=== PATIENT | female | born 1990 | race Caucasian/White ===

== ENCOUNTER 2016-10-22 14:09 | Emergency (ER) | payer OTHER ==
[2016-10-22 14:15] VITALS: BP 148/87; PULSE 98; RESP 18; TEMP 98.7
--- NOTE | 2016-10-22 14:54 | ED ---
Female Urogenital HPI - General Chief complaint: Vaginal Bleeding Stated complaint: 4 weeks /poss misscarriage Time Seen by Provider: 10/22/16 14:29 Source: patient, RN notes reviewed Mode of arrival: ambulatory Limitations: no limitations - History of Present Illness Initial comments: Patient is was a female presents to the emergency room for evaluation of vaginal bleeding. Patient states last menstrual cycle was in September. Patient states she thinks she is about 4 weeks . Patient states she began spotting today. Patient states she thinks she is having a miscarriage. Patient states she had two previous full term vaginal births. Patient states having slight lower abdominal cramping. Patient states the spotting began shortly before arrival. Patient denies nausea or vomiting. Patient denies headache or dizziness. Patient denies chest pain or shortness of breath. Patient states she's not followed up with [facility] yet. Patient does admit to smoking daily. Last Menstrual Period: 09/15/16 - Related Data Home Medications Medication Instructions Recorded Confirmed No Known Home Medications [No 10/22/16 10/22/16 Known Home Medications] Allergies Allergy/AdvReac Type Severity Reaction Status Date / Time No Known Allergies Allergy Verified 10/22/16 14:30 Review of Systems ROS Statement: Those systems with pertinent positive or pertinent negative responses have been documented in the HPI. ROS Other: All systems not noted in ROS Statement are negative. Past Medical History Past Medical History: No Reported History History of Any Multi-Drug Resistant Organisms: None Reported Past Surgical History: Section Past Psychological History: No Psychological Hx Reported Smoking Status: Current every day smoker Past Alcohol Use History: Occasional Past Drug Use History: None Reported General Exam - General Exam Comments Initial Comments: Sitting in exam room, no distress. Limitations: no limitations General appearance: alert, in no apparent distress Head exam: Present: atraumatic, normocephalic, normal inspection Eye exam: Present: normal appearance ENT exam: Present: normal exam Neck exam: Present: normal inspection Respiratory exam: Present: normal lung sounds bilaterally. Absent: respiratory distress Cardiovascular Exam: Present: regular rate, normal rhythm, normal heart sounds GI/Abdominal exam: Present: soft, normal bowel sounds. Absent: distended, tenderness, guarding, rebound, rigid External exam: Present: normal external exam Speculum exam: Present: vaginal bleeding Expanded Speculum exam: Present: cervical OS closed Extremities exam: Present: normal inspection Back exam: Present: normal inspection Neurological exam: Present: alert, oriented X3, CN II-XII intact, normal gait Psychiatric exam: Present: normal affect, normal mood Skin exam: Present: warm, dry, intact, normal color. Absent: rash Course Vital Signs 10/22/16 14:11 Temperature 98.7 F Pulse Rate 98 Respiratory 18 Rate Blood Pressure 148/87 O2 Sat by Pulse 98 Oximetry Medical Decision Making - Medical Decision Making Patient is a 26-year-old female presents to the emergency room for evaluation of vaginal bleeding. Patient states she is about 4 weeks . Ultrasound showed no evidence of IUP. Beta-hCG 15. blood type A positive. Advised patient to return for repeat beta hCG in 48 hours. Patient advised follow-up with OB/ [employer] COUNTER PERSON. Patient states she understands everything that was discussed with her. Return parameters discussed. Case discussed Dr. Espino. - Lab Data Lab Results 10/22/16 10/22/16 10/22/16 Range/Units 14:38 14:38 14:38 HCG, Quant 15.1 mIU/mL Urine Color Light Red Urine Appearance Cloudy H (Clear) Urine pH 5.5 (5.0-8.0) Ur Specific [place] 1.021 (1.001-1.035) Urine Protein 1+ H (Negative) Urine Glucose (UA) Negative (Negative) Urine Ketones Negative (Negative) Urine Blood Large H (Negative) Urine Nitrite Negative (Negative) Urine Bilirubin Negative (Negative) Urine Urobilinogen <2.0 (<2.0) mg/dL Ur Leukocyte Esterase Negative (Negative) Urine RBC >182 H (0-5) /hpf Urine WBC 9 H (0-5) /hpf Ur Squamous Epith Cells 4 (0-4) /hpf Urine Bacteria Occasional H (None) /hpf Urine Mucus Rare H (None) /hpf Urine Yeast (Budding) Many H (None) /hpf Blood Type A Positive Blood Type Recheck No - Radiology Data Radiology results: report reviewed, image reviewed Disposition Clinical Impression: Threatened Disposition: HOME SELF-CARE Condition: Good Instructions: Threatened Miscarriage (ED) Additional Instructions: Please return for repeat beta-hCG in 48 hours. Refrain from heavy lifting or sexual activity for the next 7-10 days. Please follow up with [facility] in 24-48 hours. If any new symptom arises or symptoms worsen, return to ER as soon as possible. Referrals: Marcelo Mcfarland DO [Doctor of Osteopathic Medicine] - 1-2 days Time of Disposition: 16:21
[2016-10-22 15:22] LABS: Appearance,Urine Cloudy (Clear); Bacteria,Urine Occasional /hpf; Bilirubin,Urine Negative (Negative); Glucose,Urine (UA) Negative (Negative); Ketones,Urine Negative (Negative); Leukocyte Esterase,Urine Negative (Negative); Mucus,Urine Rare /hpf; Nitrite,Urine Negative (Negative); PH, Urine 5.5 (5.0-8.0); Particle Count 7876; Protein,Urine 1+ (Negative); RBC,Urine >182 /hpf (0-5); Specific Gravity,Urine 1.021 (1.001-1.035); Squamous Epithelial Cell,Urine 4 /hpf (0-4); UA Billing (MACRO vs. MICRO) MICRO; Urobilinogen,Urine <2.0 mg/dL (<2.0); WBC,Urine 9 /hpf (0-5)
--- NOTE | 2016-10-22 16:00 | US ---
EXAMINATION TYPE: US OB <=14 wks transvag DATE OF EXAM: 10/22/2016 COMPARISON: NONE CLINICAL HISTORY: Pain. Pt states vaginal bleeding that started today EXAM PERFORMED: Transvaginal (TV) and Transabdominal (TA) endovaginal scanning performed for better evaluation of the uterus and ovaries EXAM MEASUREMENTS: GESTATIONAL AGE / DATING Physician Established: Not established Dates by LMP: (5 weeks/2 days) EDC: 06/22/2017 Dates by First Scan: No prior Dates by Current Scan for: No IUP seen MATERNAL ANATOMY Uterus: 9.2 x 4.6 x 5.9 cm Right Ovary: 2.6 x 2.1 x 1.9 cm Left Ovary: 2.9 x 1.8 x 2.2 cm Post CDS / Adnexa: wnl Presence of free fluid: No Presence of corpus luteal cyst: Right Ovary= 1.5 x 1.3 x 1.3 cm GESTATION / SURVEY IUP: No IUP seen at this time Date of LMP: 09/15/2016 Beta HcG (if available): 15 No IUP seen at this time IMPRESSION: Intrauterine is not evident, correlate clinically and follow-up as indicated.
== END 2016-10-22 16:49 | disposition home or self-care (01) ==
LOC: EC 14:09
DX: O20.0 Threatened abortion (principal); O99.331 Smoking (tobacco) complicating pregnancy, first trimester; F17.200 Nicotine dependence, unspecified, uncomplicated; Z3A.01 Less than 8 weeks gestation of pregnancy
CPT/HCPCS: 36415; 76801; 76817; 81001; 84702; 86900; 86901; 99284

== ENCOUNTER 2018-06-23 16:29 | Emergency (ER) | payer OTHER ==
[2018-06-23 16:53] VITALS: RESP 18
[2018-06-23] MEDS: SODIUM CHLORIDE 0.9% 500 ML 500 ML IV SCH (17:45)
[2018-06-23 18:02] LABS: Basophils # (A) 0.1 k/uL (0-0.2); Basophils % (A) 1 %; Eosinophils # (A) 0.3 k/uL (0-0.7); Eosinophils % (A) 4 %; HCT 45.6 % (34.0-46.0); HGB 15.2 gm/dL (11.4-16.0); Lymphocytes # (A) 1.9 k/uL (1.0-4.8); Lymphocytes % (A) 28 %; MCH 30.1 pg (25.0-35.0); MCHC 33.3 g/dL (31.0-37.0); MCV 90.7 fL (80.0-100.0); Mean Platelet Volume 6.9; Monocytes # (A) 0.4 k/uL (0-1.0); Monocytes % (A) 6 %; Neutrophils # (A) 4.3 k/uL (1.3-7.7); Neutrophils % (A) 61 %; Platelet Count 290 k/uL (150-450); RBC 5.03 m/uL (3.80-5.40); RDW 12.9 % (11.5-15.5)
[2018-06-23 18:12] LABS: ALT 32 U/L (9-52); AST 20 U/L (14-36); Alkaline Phosphatase 66 U/L (38-126); Anion Gap 8 mmol/L; Blood Urea Nitrogen 11 mg/dL (7-17); Calcium 9.3 mg/dL (8.4-10.2); Carbon Dioxide 23 mmol/L (22-30); Chloride 110 mmol/L (98-107); Glucose 93 mg/dL (74-99); Potassium 4.4 mmol/L (3.5-5.1); Sodium 141 mmol/L (137-145); Total Bilirubin 0.4 mg/dL (0.2-1.3); Total Protein 6.9 g/dL (6.3-8.2)
--- NOTE | 2018-06-23 18:22 | CT ---
CT scan of the orbits. History right eye swelling and redness. Comparison none. TECHNIQUE: Multiple axial sections were obtained from the top to the bottom of the orbits with intravenous contr ast. Contrast was Isovue 100 mL. FINDINGS: The globes are symmetric. There is no evidence of retro-orbital mass. Extraocular muscles are symmetr ic. There is mild preseptal soft tissue swelling on the right side periorbital soft tissues. The bony orbits are intact. There is normal aeration of the frontal and ethmoid and maxillary sinuses except for small mucus retention cyst in the left maxillary sinus. Sphenoid sinus appears normal. I see no b sherry destructive process. IMPRESSION: Mild preseptal soft tissue swelling on the right side. No fracture seen.
[2018-06-23] MEDS ORDERED: AMPICILLIN-SULBACTAM 3 GM in SODIUM CHLORIDE 0.9% 100 ML IVPB STA (18:53)
--- NOTE | 2018-06-23 18:59 | ED ---
General Adult HPI - General Chief complaint: ENT Stated complaint: rt eye pain Time Seen by Provider: 06/23/18 17:02 Source: patient, RN notes reviewed Mode of arrival: ambulatory Limitations: no limitations - History of Present Illness Initial comments: 28-year-old female presents to the emergency department for a chief complaint of right eye swelling. Patient states that 4 days ago her right eye started to feel scratchy and irritated. She states that 3 days ago she started to have redness along the right eye. She states that she was using a pink eye drop she got [id number]. She saw her primary care provider 3 days ago who prescribed her prednisone drops that she has been doing since then. Patient to continue to get erythematous so she made an appointment with an folding machine operator. She saw the folding machine operator today and was sent over to the emergency department for rule out orbital cellulitis. Patient denies fevers or chills. She denies blurry vision. She does admit to minimal pain with lateral and medial movements of the right eye. Patient has no other complaints at this time including shortness of breath, chest pain, abdominal pain, nausea or vomiting, headache, or visual changes. - Related Data Home Medications Medication Instructions Recorded Confirmed prednisoLONE ACETATE [Pred Forte See Taper RIGHT EYE DIRECTED 06/23/18 1%] Previous Rx's Medication Instructions Recorded Cephalexin [Keflex] 500 mg PO Q6HR 10 Days cap 06/23/18 Clindamycin HCl [Cleocin] 450 mg PO TID 10 Days cap 06/23/18 Erythromycin Ophth Oint [Romycin 1 applic RIGHT EYE QID 7 Days gm 06/23/18 Ophth Oint] Allergies Allergy/AdvReac Type Severity Reaction Status Date / Time No Known Allergies Allergy Verified 06/23/18 18:00 Review of Systems ROS Statement: Those systems with pertinent positive or pertinent negative responses have been documented in the HPI. ROS Other: All systems not noted in ROS Statement are negative. Past Medical History Past Medical History: No Reported History History of Any Multi-Drug Resistant Organisms: None Reported Past Surgical History: Section Past Psychological History: No Psychological Hx Reported Smoking Status: Current every day smoker Past Alcohol Use History: Occasional Past Drug Use History: None Reported General Exam Limitations: no limitations General appearance: alert, in no apparent distress Head exam: Present: atraumatic, normocephalic, normal inspection Eye exam: Present: normal appearance, PERRL, EOMI (minimal pain with lateral and medial movements of right eye), conjunctival injection (erythema noted to the right conjunctiva), periorbital swelling (erythema noted to the periorbital area of the right eye), periorbital tenderness. Absent: scleral icterus Expanded Visual acuity (R) = 20/: 50 Visual acuity (L) = 20/: 25 ENT exam: Present: normal exam, mucous membranes moist Neck exam: Present: normal inspection, full ROM. Absent: tenderness, meningismus, lymphadenopathy Respiratory exam: Present: normal lung sounds bilaterally. Absent: respiratory distress, wheezes, rales, rhonchi, stridor Cardiovascular Exam: Present: regular rate, normal rhythm, normal heart sounds. Absent: systolic murmur, diastolic murmur, rubs, gallop, clicks Course Vital Signs 06/23/18 06/23/18 16:48 20:52 Temperature 99 F 98.1 F Pulse Rate 99 78 Respiratory 18 18 Rate Blood Pressure 131/94 155/78 O2 Sat by Pulse 98 97 Oximetry Medical Decision Making - Medical Decision Making 28-year-old female presents to the emergency department for a chief complaint of right eye swelling [address] Quiroz today who sent her to the ER for rule out orbital cellulitis. On exam patient does have minimal pain with medial and lateral motions. Denies any visual changes. There is some erythema noted of the conjunctiva. Edema noted with mild erythema of the periorbital structures of the right eye. CBC CMP unremarkable. CT shows mild preseptal soft tissue swelling on the right side. Urine obtained and did show hCG, patient was unaware of this however given patient symptoms computed tomography scan and antibiotics are necessary. Patient agrees with this. Patient given Unasyn. Spoke with Dr. Fuentes who recommends outpatient antibiotics at this time with follow-up to Dr. Rogers tomorrow. Patient will be given clindamycin which is a category B and recommended in periOrbital cellulitis. Patient will return here she has any worsening symptoms. - Lab Data Result diagrams: 06/23/18 17:45 06/23/18 17:45 Lab Results 06/23/18 06/23/18 06/23/18 Range/Units 17:45 17:45 17:45 WBC 7.0 (3.8-10.6) k/uL RBC 5.03 (3.80-5.40) m/uL Hgb 15.2 (11.4-16.0) gm/dL Hct 45.6 (34.0-46.0) % MCV 90.7 (80.0-100.0) fL MCH 30.1 (25.0-35.0) pg MCHC 33.3 (31.0-37.0) g/dL RDW 12.9 (11.5-15.5) % Plt Count 290 (150-450) k/uL Neutrophils % 61 % Lymphocytes % 28 % Monocytes % 6 % Eosinophils % 4 % Basophils % 1 % Neutrophils # 4.3 (1.3-7.7) k/uL Lymphocytes # 1.9 (1.0-4.8) k/uL Monocytes # 0.4 (0-1.0) k/uL Eosinophils # 0.3 (0-0.7) k/uL Basophils # 0.1 (0-0.2) k/uL Sodium 141 (137-145) mmol/L Potassium 4.4 (3.5-5.1) mmol/L Chloride 110 H (98-107) mmol/L Carbon Dioxide 23 (22-30) mmol/L Anion Gap 8 mmol/L BUN 11 (7-17) mg/dL Creatinine 0.67 (0.52-1.04) mg/dL Est GFR (CKD-EPI)AfAm >90 (>60 ml/min/1.73 sqM) Est GFR (CKD-EPI)NonAf >90 (>60 ml/min/1.73 sqM) Glucose 93 (74-99) mg/dL Plasma Lactic Acid Fabiano 1.3 (0.7-2.0) mmol/L Calcium 9.3 (8.4-10.2) mg/dL Total Bilirubin 0.4 (0.2-1.3) mg/dL AST 20 (14-36) U/L ALT 32 (9-52) U/L Alkaline Phosphatase 66 (38-126) U/L Total Protein 6.9 (6.3-8.2) g/dL Albumin 4.0 (3.5-5.0) g/dL Urine Color Urine Appearance (Clear) Urine pH (5.0-8.0) Ur Specific [place] (1.001-1.035) Urine Protein (Negative) Urine Glucose (UA) (Negative) Urine Ketones (Negative) Urine Blood (Negative) Urine Nitrite (Negative) Urine Bilirubin (Negative) Urine Urobilinogen (<2.0) mg/dL Ur Leukocyte Esterase (Negative) Urine HCG, Qual (Not Detectd) 06/23/18 06/23/18 Range/Units 18:56 18:56 WBC (3.8-10.6) k/uL RBC (3.80-5.40) m/uL Hgb (11.4-16.0) gm/dL Hct (34.0-46.0) % MCV (80.0-100.0) fL MCH (25.0-35.0) pg MCHC (31.0-37.0) g/dL RDW (11.5-15.5) % Plt Count (150-450) k/uL Neutrophils % % Lymphocytes % % Monocytes % % Eosinophils % % Basophils % % Neutrophils # (1.3-7.7) k/uL Lymphocytes # (1.0-4.8) k/uL Monocytes # (0-1.0) k/uL Eosinophils # (0-0.7) k/uL Basophils # (0-0.2) k/uL Sodium (137-145) mmol/L Potassium (3.5-5.1) mmol/L Chloride (98-107) mmol/L Carbon Dioxide (22-30) mmol/L Anion Gap mmol/L BUN (7-17) mg/dL Creatinine (0.52-1.04) mg/dL Est GFR (CKD-EPI)AfAm (>60 ml/min/1.73 sqM) Est GFR (CKD-EPI)NonAf (>60 ml/min/1.73 sqM) Glucose (74-99) mg/dL Plasma Lactic Acid Fabiano (0.7-2.0) mmol/L Calcium (8.4-10.2) mg/dL Total Bilirubin (0.2-1.3) mg/dL AST (14-36) U/L ALT (9-52) U/L Alkaline Phosphatase (38-126) U/L Total Protein (6.3-8.2) g/dL Albumin (3.5-5.0) g/dL Urine Color Yellow Urine Appearance Clear (Clear) Urine pH 5.5 (5.0-8.0) Ur Specific [place] 1.042 H (1.001-1.035) Urine Protein Negative (Negative) Urine Glucose (UA) Negative (Negative) Urine Ketones Negative (Negative) Urine Blood Negative (Negative) Urine Nitrite Negative (Negative) Urine Bilirubin Negative (Negative) Urine Urobilinogen <2.0 (<2.0) mg/dL Ur Leukocyte Esterase Negative (Negative) Urine HCG, Qual Detected (Not Detectd) Disposition Clinical Impression: Preseptal cellulitis, Disposition: HOME SELF-CARE Condition: Good Instructions (If sedation given, give patient instructions): Periorbital Cellulitis in Adults (ED) Additional Instructions: Please use antibiotic as directed. Please follow-up with MECHANICAL PROJECT MANAGER and folding machine operator tomorrow. Please return here if you have any worsening symptoms. Prescriptions: Cephalexin [Keflex] 500 mg PO Q6HR 10 Days cap Clindamycin HCl [Cleocin] 450 mg PO TID 10 Days cap Erythromycin Ophth Oint [Romycin Ophth Oint] 1 applic RIGHT EYE QID 7 Days gm Is patient prescribed a controlled substance at d/c from ED?: No Referrals: Frantz Lim DO [Primary Care Provider] - 1-2 days Eduardo Rogers MD [STAFF PHYSICIAN] - 1-2 days Time of Disposition: 20:38
[2018-06-23 19:12] LABS: Appearance,Urine Clear (Clear); Bilirubin,Urine Negative (Negative); Blood,Urine Negative (Negative); Color,Urine Yellow; Glucose,Urine (UA) Negative (Negative); Ketones,Urine Negative (Negative); Leukocyte Esterase,Urine Negative (Negative); Nitrite,Urine Negative (Negative); PH, Urine 5.5 (5.0-8.0); Protein,Urine Negative (Negative); Specific Gravity,Urine 1.042 (1.001-1.035); Urobilinogen,Urine <2.0 mg/dL (<2.0)
[2018-06-23] MEDS ORDERED: ERYTHROMYCIN 5 MG/GM OPHTH OINT 3.5 GM TUBE RIGHT EYE STA (20:39)
[2018-06-23 21:08] VITALS: BP 155/78; PULSE 78; TEMP 98.1
== END 2018-06-23 19:55 | disposition home or self-care (01) ==
LOC: EC 16:29
DX: O99.711 Diseases of the skin and subcutaneous tissue complicating pregnancy, first trimester (principal); L03.213 Periorbital cellulitis; O99.331 Smoking (tobacco) complicating pregnancy, first trimester; F17.200 Nicotine dependence, unspecified, uncomplicated; Z3A.01 Less than 8 weeks gestation of pregnancy; Z79.899 Other long term (current) drug therapy
CPT/HCPCS: 36415; 80053; 83605; 85025; 81003; 81025; 87040; 70481; 99284; 96365; J0295; Q9967

== ENCOUNTER 2018-06-25 15:09 | Emergency (ER) | payer OTHER ==
--- NOTE | 2018-06-25 15:52 | ED ---
General Adult HPI - General Chief complaint: Eye Problems Stated complaint: Eye problems Source: patient, RN notes reviewed Mode of arrival: ambulatory Limitations: no limitations - History of Present Illness Initial comments: Patient is a 28-year-old female who presents the emergency department with a five-day history of eye infection. She was here on 06/23/2018 for right eye infection was found to have preseptal cellulitis following computed tomography scan and was prescribed Keflex and Clindamycin. Patient states she has been taking these as prescribed. She reports she has not followed up with anyone after her visit 2 days ago. She states that the infection from her right eye is spreading to her left eye. Admits to watery eye drainage. Patient denies any recent fever, chills, shortness of breath, chest pain, back pain, abdominal pain , nausea or vomiting, numbness or tingling, headaches or visual changes, or any other complaints. - Related Data Home Medications Medication Instructions Recorded Confirmed prednisoLONE ACETATE [Pred Forte See Taper RIGHT EYE DIRECTED 06/23/18 1%] Previous Rx's Medication Instructions Recorded Cephalexin [Keflex] 500 mg PO Q6HR 10 Days cap 06/23/18 Clindamycin HCl [Cleocin] 450 mg PO TID 10 Days cap 06/23/18 Erythromycin Ophth Oint [Romycin 1 applic RIGHT EYE QID 7 Days gm 06/23/18 Ophth Oint] Allergies Allergy/AdvReac Type Severity Reaction Status Date / Time No Known Allergies Allergy Verified 06/25/18 15:13 Review of Systems ROS Statement: Those systems with pertinent positive or pertinent negative responses have been documented in the HPI. ROS Other: All systems not noted in ROS Statement are negative. Past Medical History Past Medical History: No Reported History History of Any Multi-Drug Resistant Organisms: None Reported Past Surgical History: Section Past Psychological History: No Psychological Hx Reported Smoking Status: Current every day smoker Past Alcohol Use History: Occasional Past Drug Use History: None Reported General Exam Limitations: no limitations General appearance: alert, in no apparent distress Head exam: Present: atraumatic, normocephalic Eye exam: Present: PERRL, EOMI, conjunctival injection (Right worse than left.) , other (Right upper eyelid is edematous.) Respiratory exam: Present: normal lung sounds bilaterally. Absent: wheezes, rales, rhonchi Cardiovascular Exam: Present: regular rate, normal rhythm Neurological exam: Present: alert, oriented X3 Course Vital Signs 06/25/18 06/25/18 06/25/18 15:11 15:41 17:15 Temperature 97.5 F L 97.9 F Pulse Rate 107 H 95 81 Respiratory 20 16 Rate Blood Pressure 159/101 150/95 158/93 O2 Sat by Pulse 99 99 97 Oximetry Medical Decision Making - Medical Decision Making Blood culture from 06/23/2018 shows no growth. Visual acuity on 06/23/2018 was right 20/50 and left 20/25. Visual acuity today is improved: right 20/30 and left 20/25. I reviewed the CT of head and orbits from 06/23/2018. Dr. Rahman spoke with Dr. Rogers (ophthalmology). This is possibly viral conjunctivitis. Will discharge with instruction to follow-up with ophthalmology. Will continue previously prescribed antibiotics. Case discussed in detail with attending physician Dr. Rahman. Disposition Clinical Impression: Preseptal cellulitis Disposition: HOME SELF-CARE Condition: Good Instructions (If sedation given, give patient instructions): Eye Lubricant ( Into the eye) Additional Instructions: Follow-up with your PCP and healthcare translator in 1 to 2 days. Continue taking antibiotics as prescribed previously. Return to the emergency department if your symptoms worsen or other concerns. Is patient prescribed a controlled substance at d/c from ED?: No Referrals: Frantz Lim DO [Primary Care Provider] - 1-2 days Time of Disposition: 17:14
[2018-06-25 17:21] VITALS: BP 158/93; PULSE 81; RESP 16; TEMP 97.9
== END 2018-06-25 17:15 | disposition home or self-care (01) ==
LOC: EC 15:09
DX: L03.213 Periorbital cellulitis (principal); F17.200 Nicotine dependence, unspecified, uncomplicated
CPT/HCPCS: 99282

== ENCOUNTER 2018-08-07 23:00 | Emergency (ER) | payer OTHER ==
[2018-08-07 23:14] VITALS: RESP 18
[2018-08-08 00:40] LABS: Basophils % (A) 1 %; Eosinophils # (A) 0.1 k/uL (0-0.7); Eosinophils % (A) 2 %; HGB 15.2 gm/dL (11.4-16.0); Lymphocytes # (A) 1.9 k/uL (1.0-4.8); Lymphocytes % (A) 21 %; MCH 29.5 pg (25.0-35.0); MCHC 34.6 g/dL (31.0-37.0); Mean Platelet Volume 9.4; Monocytes # (A) 0.4 k/uL (0-1.0); Monocytes % (A) 5 %; Neutrophils # (A) 6.5 k/uL (1.3-7.7); Neutrophils % (A) 71 %; Platelet Count 306 k/uL (150-450); RBC 5.16 m/uL (3.80-5.40); RDW 15.4 % (11.5-15.5); WBC 9.1 k/uL (3.8-10.6)
[2018-08-08] MEDS ORDERED: SODIUM CHLORIDE 0.9% 1,000 ML IV ONE (00:43)
[2018-08-08 00:50] LABS: ALT 29 U/L (9-52); AST 16 U/L (14-36); Albumin 4.1 g/dL (3.5-5.0); Alkaline Phosphatase 78 U/L (38-126); Anion Gap 11 mmol/L; Blood Urea Nitrogen 16 mg/dL (7-17); Calcium 9.6 mg/dL (8.4-10.2); Carbon Dioxide 23 mmol/L (22-30); Chloride 108 mmol/L (98-107); Glucose 119 mg/dL (74-99); Potassium 3.8 mmol/L (3.5-5.1); Sodium 142 mmol/L (137-145); Total Bilirubin 0.3 mg/dL (0.2-1.3); Total Protein 6.9 g/dL (6.3-8.2)
--- NOTE | 2018-08-08 00:56 | ED ---
Female Urogenital HPI - General Source: patient Mode of arrival: ambulatory Limitations: no limitations <Courtney Mack - Last Filed: 08/08/18 03:00> <Keesha Daniel - Last Filed: 08/08/18 07:24> - General Chief complaint: Vaginal Bleeding Stated complaint: Dx Miscarriage 07/18 still bleeding Time Seen by Provider: 08/08/18 00:29 - History of Present Illness Initial comments: 28-year-old female patient percents to the emergency department today for evaluation of heavy vaginal bleeding. The patient states that she started to have a miscarriage on 07/18/2018. Patient states she continues to bleed. Shawn membreno states that she did have increase in bleeding today and has been changing her pad every 1-1/2-2 hours. Patient states that the pads are fairly saturated. She denies any passage of tissue or clots. States earlier in the day she did have some lightheaded and dizziness. She denies any chest pain or shortness of breath. Having some suprapubic abdominal cramping. Denies any back pain. Letty ent is G4, P2, with one miscarriage in the past. Patient states she is approximate 6 weeks at time of spontaneous . Patient denies any recent rash, fever, chills, shortness breath, chest pain, nausea, vomiting, diarrhea, constipation, back pain, numbness, tingling, dysuria, urinary urgency, urinary frequency, headache, visual changes, or any other complaints. (Courtney Mack) - Related Data Home Medications Medication Instructions Recorded Confirmed prednisoLONE ACETATE [Pred Forte See Taper RIGHT EYE DIRECTED 06/23/18 06/23/18 1%] Previous Rx's Medication Instructions Recorded Cephalexin [Keflex] 500 mg PO Q6HR 10 Days cap 06/23/18 Clindamycin HCl [Cleocin] 450 mg PO TID 10 Days cap 06/23/18 Erythromycin Ophth Oint [Romycin 1 applic RIGHT EYE QID 7 Days gm 06/23/18 Ophth Oint] Allergies Allergy/AdvReac Type Severity Reaction Status Date / Time No Known Allergies Allergy Verified 06/25/18 15:13 Review of Systems ROS Other: All systems not noted in ROS Statement are negative. <Courtney Mack - Last Filed: 08/08/18 03:00> ROS Other: All systems not noted in ROS Statement are negative. <Keesha Daniel P - Last Filed: 08/08/18 07:24> ROS Statement: Those systems with pertinent positive or pertinent negative responses have been documented in the HPI. Past Medical History Past Medical History: No Reported History History of Any Multi-Drug Resistant Organisms: None Reported Past Surgical History: Section Past Psychological History: No Psychological Hx Reported Smoking Status: Current every day smoker Past Alcohol Use History: Occasional Past Drug Use History: None Reported <Courtney Mack M - Last Filed: 08/08/18 03:00> General Exam Limitations: no limitations General appearance: alert, in no apparent distress, other (Physical well- developed, well-nourished adult female patient in no acute distress. Vital signs upon presentation are temperature 98.1F, pulse 110, respirations 18, blood pressure 152/94, pulse ox 100% on room air.) Eye exam: Present: normal appearance, PERRL, EOMI. Absent: scleral icterus, conjunctival injection, periorbital swelling ENT exam: Present: normal exam, normal oropharynx, mucous membranes moist Respiratory exam: Present: normal lung sounds bilaterally. Absent: respiratory distress, wheezes, rales, rhonchi, stridor Cardiovascular Exam: Present: regular rate, normal rhythm, normal heart sounds. Absent: systolic murmur, diastolic murmur, rubs, gallop, clicks GI/Abdominal exam: Present: soft, normal bowel sounds. Absent: distended, tenderness, guarding, rebound, rigid External exam: Present: normal external exam Speculum exam: Present: vaginal bleeding (Mild dark red vaginal bleeding. No clots noted. Cervical os dilated to fingertip. ). Absent: tissue By manual exam: Present: normal by manual exam Neurological exam: Present: alert, oriented X3, CN II-XII intact Psychiatric exam: Present: normal affect, normal mood Skin exam: Present: warm, dry, intact, normal color. Absent: rash <Courtney Mack M - Last Filed: 08/08/18 03:00> Course Vital Signs 08/07/18 08/08/18 23:08 02:26 Temperature 98.1 F 98.0 F Pulse Rate 110 H 78 Respiratory 18 18 Rate Blood Pressure 152/94 138/73 O2 Sat by Pulse 100 99 Oximetry Medical Decision Making - Lab Data Result diagrams: 08/07/18 23:53 08/07/18 23:53 <Courtney Mack - Last Filed: 08/08/18 03:00> - Lab Data Result diagrams: 08/07/18 23:53 08/07/18 23:53 <Keseha Daniel - Last Filed: 08/08/18 07:24> - Medical Decision Making 28-year-old female patient presents to the emergency department today for evaluation of vaginal bleeding. Patient states that she has been changing her pad every 1-1/2-2 hours today. Patient is reporting suprapubic discomfort. Patient was diagnosed with spontaneous on 07/18/2018. Followed-up with Dr. Sims a couple of weeks ago. Physical examination at this time is unremarkable. Pelvic examination did reveal presence of mild dark red vaginal bleeding. Cervical os is mildly dilated to fingertip. Labs reviewed and revealed normal hemoglobin. HCG is 16 at this time. Patient vital signs are stable. She is afebrile. She'll be discharged home to follow-up with TEST WORKER for recheck as soon as possible. Return parameters were discussed in detail. She verbalizes understanding and agrees with this plan. (Courtney Mack) I was available for consultation in the emergency department. The history and physical exam were done by the midlevel provider. I was consulted for this patient's care. I reviewed the case with the midlevel provider and based on their presentation of the patient, I agree with the assessment, medical decision making and plan of care as documented. (Keesha Daniel) - Lab Data Lab Results 08/07/18 08/07/18 08/08/18 Range/Units 23:53 23:53 00:42 WBC 9.1 (3.8-10.6) k/uL RBC 5.16 (3.80-5.40) m/uL Hgb 15.2 (11.4-16.0) gm/dL Hct 44.0 (34.0-46.0) % MCV 85.2 D (80.0-100.0) fL MCH 29.5 (25.0-35.0) pg MCHC 34.6 (31.0-37.0) g/dL RDW 15.4 (11.5-15.5) % Plt Count 306 (150-450) k/uL Neutrophils % 71 % Lymphocytes % 21 % Monocytes % 5 % Eosinophils % 2 % Basophils % 1 % Neutrophils # 6.5 (1.3-7.7) k/uL Lymphocytes # 1.9 (1.0-4.8) k/uL Monocytes # 0.4 (0-1.0) k/uL Eosinophils # 0.1 (0-0.7) k/uL Basophils # 0.0 (0-0.2) k/uL PT (9.0-12.0) sec INR (<1.2) APTT (22.0-30.0) sec Sodium 142 (137-145) mmol/L Potassium 3.8 (3.5-5.1) mmol/L Chloride 108 H (98-107) mmol/L Carbon Dioxide 23 (22-30) mmol/L Anion Gap 11 mmol/L BUN 16 (7-17) mg/dL Creatinine 0.90 (0.52-1.04) mg/dL Est GFR (CKD-EPI)AfAm >90 (>60 ml/min/1.73 sqM) Est GFR (CKD-EPI)NonAf 88 (>60 ml/min/1.73 sqM) Glucose 119 H (74-99) mg/dL Calcium 9.6 (8.4-10.2) mg/dL Total Bilirubin 0.3 (0.2-1.3) mg/dL AST 16 (14-36) U/L ALT 29 (9-52) U/L Alkaline Phosphatase 78 (38-126) U/L Total Protein 6.9 (6.3-8.2) g/dL Albumin 4.1 (3.5-5.0) g/dL HCG, Quant 16.2 mIU/mL Blood Type A Positive Blood Type Recheck No 08/08/18 Range/Units 00:42 WBC (3.8-10.6) k/uL RBC (3.80-5.40) m/uL Hgb (11.4-16.0) gm/dL Hct (34.0-46.0) % MCV (80.0-100.0) fL MCH (25.0-35.0) pg MCHC (31.0-37.0) g/dL RDW (11.5-15.5) % Plt Count (150-450) k/uL Neutrophils % % Lymphocytes % % Monocytes % % Eosinophils % % Basophils % % Neutrophils # (1.3-7.7) k/uL Lymphocytes # (1.0-4.8) k/uL Monocytes # (0-1.0) k/uL Eosinophils # (0-0.7) k/uL Basophils # (0-0.2) k/uL PT 10.1 (9.0-12.0) sec INR 0.9 (<1.2) APTT 25.5 (22.0-30.0) sec Sodium (137-145) mmol/L Potassium (3.5-5.1) mmol/L Chloride (98-107) mmol/L Carbon Dioxide (22-30) mmol/L Anion Gap mmol/L BUN (7-17) mg/dL Creatinine (0.52-1.04) mg/dL Est GFR (CKD-EPI)AfAm (>60 ml/min/1.73 sqM) Est GFR (CKD-EPI)NonAf (>60 ml/min/1.73 sqM) Glucose (74-99) mg/dL Calcium (8.4-10.2) mg/dL Total Bilirubin (0.2-1.3) mg/dL AST (14-36) U/L ALT (9-52) U/L Alkaline Phosphatase (38-126) U/L Total Protein (6.3-8.2) g/dL Albumin (3.5-5.0) g/dL HCG, Quant mIU/mL Blood Type Blood Type Recheck Disposition Is patient prescribed a controlled substance at d/c from ED?: No Time of Disposition: 02:11 <Courtney Mack M - Last Filed: 08/08/18 03:00> <Keesha Daniel - Last Filed: 08/08/18 07:24> Clinical Impression: Miscarriage, Vaginal bleeding Disposition: HOME SELF-CARE Condition: Good Instructions (If sedation given, give patient instructions): Miscarriage (ED) Additional Instructions: Follow-up with your TEST WORKER for recheck as soon as possible. Return to the emergency department immediately for any new, worsening, or concerning symptoms. Referrals: Frantz Lim DO [Primary Care Provider] - 1-2 days
[2018-08-08 01:07] LABS: HCG,Quantitative Serum 16.2 mIU/mL
[2018-08-08 01:13] LABS: INR 0.9 (<1.2); Partial Thromboplastin Time 25.5 sec (22.0-30.0); Prothrombin Time 10.1 sec (9.0-12.0)
[2018-08-08 01:19] LABS: MCV 85.2 fL (80.0-100.0)
[2018-08-08 02:27] VITALS: BP 138/73; PULSE 78; TEMP 98
== END 2018-08-08 02:27 | disposition home or self-care (01) ==
LOC: EC 23:00
DX: O03.9 Complete or unspecified spontaneous abortion without complication (principal); N93.9 Abnormal uterine and vaginal bleeding, unspecified; F17.200 Nicotine dependence, unspecified, uncomplicated
CPT/HCPCS: 36415; 80053; 84702; 85025; 85610; 85730; 86900; 86901; 96360; 99284

== ENCOUNTER → 2018-10-29 | Outpatient (CLI) | payer OTHER ==
--- NOTE | 2018-10-29 18:46 | US ---
EXAMINATION TYPE: Ultrasound OB <= 14 week fetus DATE OF EXAM: 10/29/2018 3:06 PM COMPARISON: NONE CLINICAL HISTORY: 28-year-old female Z36 CONFIRM DATES. EXAM PERFORMED: Transabdominal (TA) FINDINGS: EXAM MEASUREMENTS: GESTATIONAL AGE / DATING Physician Established: Not yet established Dates by LMP: LMP unknown Dates by First Scan: No previous this is first scan Dates by Current Scan for: (13 weeks/5 days) EDC: 05/01/2019 MATERNAL ANATOMY Uterus: 15.3 x 6.8 x 10.7 cm Right Ovary: 4.9 x 2.8 x 3.6 cm for a volume of 24.7 mL Left Ovary: 2.3 x 1.4 x 2.2 cm Post CDS / Adnexa: wnl Presence of free fluid: No Presence of corpus luteal cyst: Probable within the right ovary measuring 2.5 x 2.0 x 1.9 cm Presence of subchorionic bleed: No GESTATION / SURVEY CRL: 7.7 cm (13 weeks/5 days) Heart Rate: 168 bpm Rhythm: Normal IUP: Viable IUP Date of LMP: Unknown Beta HcG (if available): Not available at this time Viable IUP with an JOSEPH of 05/01/2019 IMPRESSION: 1. Single live intrauterine with gestational age of 13 weeks 5 days by crown-rump length. 1. Mildly enlarged right ovary secondary to a 2.5 cm cyst, possible corpus luteum within. 3. Complete survey recommended at 18-20 weeks.
== END | disposition home or self-care (01) ==
LOC: RADUSWWP 14:52
PROVIDERS: ATTEND Obstetrics & Gynecology
DX: O34.81 Maternal care for other abnormalities of pelvic organs, first trimester (principal); N83.11 Corpus luteum cyst of right ovary; Z3A.13 13 weeks gestation of pregnancy
CPT/HCPCS: 76801

== ENCOUNTER → 2018-11-17 | Outpatient (CLI) | payer OTHER ==
[2018-11-17 11:34] LABS: HCT 37.3 % (34.0-46.0); HGB 12.4 gm/dL (11.4-16.0); MCH 29.6 pg (25.0-35.0); MCHC 33.3 g/dL (31.0-37.0); MCV 88.9 fL (80.0-100.0); Mean Platelet Volume 6.9; Platelet Count 259 k/uL (150-450); RDW 14.4 % (11.5-15.5); WBC 7.5 k/uL (3.8-10.6)
[2018-11-17 16:31] LABS: African American GFR (CKD) 143.8 (60.0-200.0)
[2018-11-17 18:56] LABS: HIV 1 AB Non-Reactive (Non-Reactive); HIV AB P24 Non-Reactive (Non-Reactive); HIV P24 AG Non-Reactive (Non-Reactive)
== END | disposition home or self-care (01) ==
LOC: LABWHC1 10:39
PROVIDERS: ATTEND Obstetrics & Gynecology
DX: Z34.82 Encounter for supervision of other normal pregnancy, second trimester (principal); Z3A.00 Weeks of gestation of pregnancy not specified
CPT/HCPCS: 36415; 82565; 82947; 85027; 86762; 86780; 86850; 86900; 86901; 87340; 87390

== ENCOUNTER 2018-12-12 21:34 | Emergency (ER) | payer OTHER ==
[2018-12-12 21:53] VITALS: RESP 18; TEMP 97.9
--- NOTE | 2018-12-12 22:42 | ED ---
Abdominal Pain HPI - General Chief Complaint: Abdominal Pain Stated Complaint: 19 wks ,cramping Time Seen by Provider: 12/12/18 21:57 Source: patient Mode of arrival: ambulatory Limitations: no limitations - History of Present Illness Initial Comments: Presenting with left lower quadrant abdominal pain that began this morning without an inciting event, is sharp, radiating from the left lower quadrant to the groin, was not improved with Tylenol, and is not accompanied by any additional symptoms. She denies vaginal bleeding, urinary frequency or urgency. She admits to intermittent nausea and vomiting as well as diarrhea during this that has not worsened. She has a history of two previous miscarriages that occurred early in her . Patient sees Dr. Kaminski for OBGYN. - Related Data Home Medications Medication Instructions Recorded Confirmed Ify-Vecb-Pycis Acid 1 cap PO DAILY 12/12/18 12/12/18 [-U Capsule (formulary)] Allergies Allergy/AdvReac Type Severity Reaction Status Date / Time No Known Allergies Allergy Verified 12/12/18 23:20 Review of Systems ROS Statement: Those systems with pertinent positive or pertinent negative responses have been documented in the HPI. Review of Systems Constitutional: Denies fever, chills Eyes: Denies change in vision, Denies pain Ears, nose, mouth, throat: Denies headaches, Denies sore throat Cardiovascular: Denies chest pain. Denies palpitations Respiratory: Denies shortness of breath, Denies cough Gastrointestinal: Denies abdominal pain. Denies nausea, vomiting, diarrhea. Genitourinary: Denies hematuria, Denies infections Musculoskeletal: Denies pain, Denies swelling Integumentary: Denies rash Neurological: Denies headache, focal weakness, focal numbness Psychiatric: Denies anxiety, Denies depression Hematologic/Lymphatic: Denies easy bleeding or bruising ROS Other: All systems not noted in ROS Statement are negative. Past Medical History Past Medical History: No Reported History History of Any Multi-Drug Resistant Organisms: None Reported Past Surgical History: Section Past Psychological History: Depression Smoking Status: Former smoker Past Alcohol Use History: None Reported Past Drug Use History: None Reported General Exam - General Exam Comments Initial Comments: General: Awake, alert, No acute Distress HENT: Normocephalic. Atraumatic Eyes: PERRL. EOMI. No scleral icterus. No injected conjunctiva Neck: Full ROM Chest/Lungs: Clear to auscultation bilaterally. No wheezing, rhonchi, or rales Cardiac: Regular rate, rhythm. No murmurs or rubs Abdomen/GI: Soft, nontender, nondistended. No rebound, guarding, or rigidity. Musculoskeletal: Full ROM Skin: Warm, dry, intact Neurologic: A/Ox3, no weakness, no sensory deficit, no abnormal gait, no coordination deficit Limitations: no limitations Course Vital Signs 12/12/18 12/13/18 21:50 01:35 Temperature 97.9 F Pulse Rate 84 83 Respiratory 18 18 Rate Blood Pressure 141/88 125/70 O2 Sat by Pulse 99 98 Oximetry Medical Decision Making - Medical Decision Making 28 yoF presenting with left lower quadrant pain. Initial exam the patient is awake, alert, no acute distress. VSS. Her UA was negative. Her ultrasound showed mild placenta previa. I spoke with Dr. Mcfarland who stated the patient can be discharged home to follow up with him in office. She was having no vaginal bleeding. She denied GI symptoms to suggest diverticulitis. No further emergent workup indicated. The patient was given return to ED instructions. They were instructed to follow up with their primary care provider. Stable for discharge at this time. - Lab Data Lab Results 12/12/18 Range/Units 22:24 Urine Color Yellow Urine Appearance Cloudy H (Clear) Urine pH 6.0 (5.0-8.0) Ur Specific [place] 1.026 (1.001-1.035) Urine Protein Trace H (Negative) Urine Glucose (UA) Negative (Negative) Urine Ketones Negative (Negative) Urine Blood Negative (Negative) Urine Nitrite Negative (Negative) Urine Bilirubin Negative (Negative) Urine Urobilinogen <2.0 (<2.0) mg/dL Ur Leukocyte Esterase Small H (Negative) Urine RBC 1 (0-5) /hpf Urine WBC 6 H (0-5) /hpf Ur Squamous Epith Cells 15 H (0-4) /hpf Urine Bacteria Occasional H (None) /hpf Urine Mucus Rare H (None) /hpf Disposition Clinical Impression: Abdominal pain during Disposition: HOME SELF-CARE Condition: Good Instructions (If sedation given, give patient instructions): Abdominal Pain in (ED) Is patient prescribed a controlled substance at d/c from ED?: No Referrals: Frantz Lim DO [Primary Care Provider] - 1-2 days Marcelo Mcfarland DO [Doctor of Osteopathic Medicine] - 1-2 days
[2018-12-12 22:43] LABS: Appearance,Urine Cloudy (Clear); Bacteria,Urine Occasional /hpf; Bilirubin,Urine Negative (Negative); Blood,Urine Negative (Negative); Color,Urine Yellow; Glucose,Urine (UA) Negative (Negative); Ketones,Urine Negative (Negative); Leukocyte Esterase,Urine Small (Negative); Mucus,Urine Rare /hpf; Nitrite,Urine Negative (Negative); Protein,Urine Trace (Negative); RBC,Urine 1 /hpf (0-5); Specific Gravity,Urine 1.026 (1.001-1.035); Squamous Epithelial Cell,Urine 15 /hpf (0-4); Urobilinogen,Urine <2.0 mg/dL (<2.0); WBC,Urine 6 /hpf (0-5)
--- NOTE | 2018-12-12 23:34 | US ---
EXAM: US Uterus, Limited CLINICAL HISTORY: ITS.REASON US Reason: Pain TECHNIQUE: Real-time ultrasound of the maternal uterus (limited) with image documentation. COMPARISON: 10/29/18 ultrasound FINDINGS: Single live intrauterine is identified. Position is cephalic. Placenta is posterior. The cervix is 9 mm away from the edge of the placenta. BPD is 4.5 cm. Head circumference is 16.8 cm. Abdominal circumference is 14.3 cm. Femur length is 2.2 cm. Estimated gestational age is 19 weeks and 3 days. Estimated weight is 307 g. MARIE is 13.9 cm. Heart rate is 154 bpm. IMPRESSION: 1. Single live intrauterine with estimated delivery date of 05/05/2019. 2. Marginal placenta previa. Normal MARIE.
[2018-12-13 01:35] VITALS: BP 125/70; PULSE 83
== END 2018-12-13 00:57 | disposition home or self-care (01) ==
LOC: EC 21:34
DX: O99.89 Other specified diseases and conditions complicating pregnancy, childbirth and the puerperium (principal); R10.32 Left lower quadrant pain; O44.22 Partial placenta previa NOS or without hemorrhage, second trimester; Z3A.19 19 weeks gestation of pregnancy; Z87.891 Personal history of nicotine dependence; Z79.899 Other long term (current) drug therapy; Z98.890 Other specified postprocedural states
CPT/HCPCS: 76805; 81001; 99284

== ENCOUNTER → 2019-02-08 | Outpatient (CLI) | payer OTHER ==
[2019-02-08 13:01] LABS: HCT 36.4 % (34.0-46.0); HGB 12.5 gm/dL (11.4-16.0); MCH 31.4 pg (25.0-35.0); MCHC 34.4 g/dL (31.0-37.0); MCV 91.4 fL (80.0-100.0); Mean Platelet Volume 6.2; Platelet Count 277 k/uL (150-450); RBC 3.99 m/uL (3.80-5.40); RDW 12.9 % (11.5-15.5); WBC 9.1 k/uL (3.8-10.6)
== END | disposition home or self-care (01) ==
LOC: LABWHC1 10:33
PROVIDERS: ATTEND Obstetrics & Gynecology
DX: Z34.82 Encounter for supervision of other normal pregnancy, second trimester (principal)
CPT/HCPCS: 36415; 82950; 85027

== ENCOUNTER 2019-02-18 19:38 | Emergency (ER) | payer OTHER ==
[2019-02-18 19:48] VITALS: TEMP 98.2
--- NOTE | 2019-02-18 20:20 | ED ---
General Adult HPI - General Source: patient Mode of arrival: ambulatory Limitations: no limitations <Kodak Ryan - Last Filed: 02/18/19 20:17> <Seth Dempsey - Last Filed: 02/18/19 23:08> - General Chief complaint: Recheck/Abnormal Lab/Rx Stated complaint: Blood pressure is high Time Seen by Provider: 02/18/19 19:59 - History of Present Illness Initial comments: Patient is a , 30 week , 29-year-old female presenting to the emergency department with a chief complaint of hypertension. Patient reports that she obtain her blood pressure home it was elevated. Patient also reports that she went to a specialty clinic for gestational diabetes in [place] where they obtain her blood pressure and it was elevated. They informed the patient if it continues to stay elevated to go to the ED for further evaluation. Patient denies any abdominal pain, chest pain, shortness of breath, blurry vision, headache, nausea, vomiting or diarrhea. Patient denies any urinary bowel symptoms. (Kodak Ryan) - Related Data Home Medications Medication Instructions Recorded Confirmed metFORMIN HCL [Glucophage] 500 mg PO BID 02/18/19 02/18/19 Allergies Allergy/AdvReac Type Severity Reaction Status Date / Time No Known Allergies Allergy Verified 02/18/19 20:11 Review of Systems ROS Other: All systems not noted in ROS Statement are negative. <Kodak Ryan - Last Filed: 02/18/19 20:17> ROS Other: All systems not noted in ROS Statement are negative. <Seth Dempsey - Last Filed: 02/18/19 23:08> ROS Statement: Those systems with pertinent positive or pertinent negative responses have been documented in the HPI. Past Medical History Past Medical History: No Reported History History of Any Multi-Drug Resistant Organisms: None Reported Past Surgical History: Section Past Psychological History: Depression Smoking Status: Former smoker Past Alcohol Use History: Occasional Past Drug Use History: None Reported <Kodak Ryan - Last Filed: 02/18/19 20:17> General Exam Limitations: no limitations General appearance: alert, in no apparent distress Head exam: Present: atraumatic, normocephalic, normal inspection Eye exam: Present: normal appearance Pupils: Present: normal accommodation ENT exam: Present: normal exam, normal oropharynx, mucous membranes moist, TM's normal bilaterally Neck exam: Present: normal inspection, full ROM Respiratory exam: Present: normal lung sounds bilaterally Cardiovascular Exam: Present: normal rhythm, tachycardia, normal heart sounds GI/Abdominal exam: Present: other () Extremities exam: Present: normal inspection, full ROM, normal capillary refill Back exam: Present: normal inspection, full ROM. Absent: CVA tenderness (R), CVA tenderness (L) Neurological exam: Present: alert, oriented X3 Psychiatric exam: Present: normal affect, normal mood Skin exam: Present: warm, intact, normal color <Kodak yRan - Last Filed: 02/18/19 20:17> Course Vital Signs 02/18/19 02/18/19 19:45 22:48 Temperature 98.2 F Pulse Rate 118 H 82 Respiratory 20 18 Rate Blood Pressure 139/86 165/98 O2 Sat by Pulse 97 99 Oximetry Medical Decision Making - Lab Data Result diagrams: 02/18/19 20:55 02/18/19 20:55 <Seth Dempsey - Last Filed: 02/18/19 23:08> - Medical Decision Making Vital decision making; this is a 29-year-old female who is approximately 30 weeks . She was told that if her blood pressure goes over 140 she's to come the emergency room. This probably was told her by a [facility] evaluating her for gestational diabetes. At home the patient reports her blood pressure was 146 over a number she can't remember. In emergency room the patient was stable. Laboratory performed emergency room showed 1+ protein in the urine or platelets were 277, liver enzymes all normal. Urine as noted above did show 1+ protein but also a large number of squamous cells. I discussed the case with Dr. Kaminski humerus the patient sent up to labor and delivery for evaluation. (Seth Dempsey) - Lab Data Lab Results 02/18/19 02/18/19 02/18/19 Range/Units 20:35 20:55 20:55 WBC 8.1 (3.8-10.6) k/uL RBC 3.91 (3.80-5.40) m/uL Hgb 12.3 (11.4-16.0) gm/dL Hct 36.0 (34.0-46.0) % MCV 92.2 (80.0-100.0) fL MCH 31.4 (25.0-35.0) pg MCHC 34.0 (31.0-37.0) g/dL RDW 13.2 (11.5-15.5) % Plt Count 262 (150-450) k/uL Sodium 137 (137-145) mmol/L Potassium 4.3 (3.5-5.1) mmol/L Chloride 106 (98-107) mmol/L Carbon Dioxide 23 (22-30) mmol/L Anion Gap 8 mmol/L BUN 10 (7-17) mg/dL Creatinine 0.66 (0.52-1.04) mg/dL Est GFR (CKD-EPI)AfAm >90 (>60 ml/min/1.73 sqM) Est GFR (CKD-EPI)NonAf >90 (>60 ml/min/1.73 sqM) Glucose 124 H (74-99) mg/dL Calcium 9.1 (8.4-10.2) mg/dL Total Bilirubin 0.1 L (0.2-1.3) mg/dL AST 11 L (14-36) U/L ALT 12 (9-52) U/L Alkaline Phosphatase 74 (38-126) U/L Total Protein 6.0 L (6.3-8.2) g/dL Albumin 3.3 L (3.5-5.0) g/dL Urine Color Yellow Urine Appearance Cloudy H (Clear) Urine pH 6.0 (5.0-8.0) Ur Specific [employer] 1.030 (1.001-1.035) Urine Protein 1+ H (Negative) Urine Glucose (UA) Negative (Negative) Urine Ketones Negative (Negative) Urine Blood Negative (Negative) Urine Nitrite Negative (Negative) Urine Bilirubin Negative (Negative) Urine Urobilinogen 2.0 (<2.0) mg/dL Ur Leukocyte Esterase Large H (Negative) Urine WBC 14 H (0-5) /hpf Ur Squamous Epith Cells 59 H (0-4) /hpf Calcium Oxalate Crystal Occasional H (None) /hpf Amorphous Sediment Few H (None) /hpf Urine Bacteria Occasional H (None) /hpf Hyaline Casts 16 H (0-2) /lpf Urine Mucus Moderate H (None) /hpf Disposition <Kodak Ryan - Last Filed: 02/18/19 20:17> Time of Disposition: 23:08 <Seth Dempsey - Last Filed: 02/18/19 23:08> Clinical Impression: Preeclampsia Disposition: DC/TRNS W/I HOSP TO [facility] Condition: Serious Referrals: Frantz Lim DO [Primary Care Provider] - 1-2 days
[2019-02-18 21:00] LABS: Amorphous Sediment,Urine Few /hpf; Appearance,Urine Cloudy (Clear); Bacteria,Urine Occasional /hpf; Bilirubin,Urine Negative (Negative); Blood,Urine Negative (Negative); Calcium Oxalate Crystals,Urine Occasional /hpf; Color,Urine Yellow; Glucose,Urine (UA) Negative (Negative); Hyaline Casts,Urine 16 /lpf (0-2); Ketones,Urine Negative (Negative); Leukocyte Esterase,Urine Large (Negative); Mucus,Urine Moderate /hpf; Nitrite,Urine Negative (Negative); Protein,Urine 1+ (Negative); Squamous Epithelial Cell,Urine 59 /hpf (0-4); WBC,Urine 14 /hpf (0-5)
[2019-02-18 21:04] LABS: HGB 12.3 gm/dL (11.4-16.0); MCH 31.4 pg (25.0-35.0); MCV 92.2 fL (80.0-100.0); Mean Platelet Volume 6.4; Platelet Count 262 k/uL (150-450); RBC 3.91 m/uL (3.80-5.40); RDW 13.2 % (11.5-15.5); WBC 8.1 k/uL (3.8-10.6)
[2019-02-18 21:13] LABS: ALT 12 U/L (9-52); AST 11 U/L (14-36); African American GFR (CKD) >90 (>60 ml/min/1.73 sqM); Albumin 3.3 g/dL (3.5-5.0); Alkaline Phosphatase 74 U/L (38-126); Anion Gap 8 mmol/L; Blood Urea Nitrogen 10 mg/dL (7-17); Calcium 9.1 mg/dL (8.4-10.2); Carbon Dioxide 23 mmol/L (22-30); Chloride 106 mmol/L (98-107); Glucose 124 mg/dL (74-99); Non-African American GFR(CKD) >90 (>60 ml/min/1.73 sqM); Potassium 4.3 mmol/L (3.5-5.1); Sodium 137 mmol/L (137-145); Total Bilirubin 0.1 mg/dL (0.2-1.3)
[2019-02-18 22:49] VITALS: BP 165/98; PULSE 82; RESP 18
[2019-02-18] MEDS ORDERED: LABETALOL 5 MG/ML VIAL MDV IVP STA (23:03)
[2019-02-18] MEDS ORDERED: NALOXONE 0.4 MG/ML 1 ML VIAL IV PRN (23:12)
== END 2019-02-18 23:35 | disposition swing bed (61) ==
LOC: EC 19:38
DX: O14.93 Unspecified pre-eclampsia, third trimester (principal); Z3A.30 30 weeks gestation of pregnancy; Z79.84 Long term (current) use of oral hypoglycemic drugs; Z87.891 Personal history of nicotine dependence
CPT/HCPCS: 36415; 80053; 81001; 85027; 99283

== ENCOUNTER 2019-02-18 23:41 | Observation (INO) | payer OTHER ==
[2019-02-18] MEDS ORDERED: LABETALOL SYRINGE 5 MG/ML IVP PRN ×2 (23:48)
[2019-02-18] MEDS ORDERED: hydrALAZINE HCL 20 MG/ML 1 ML VIAL IVP PRN ×2 (23:48→23:54)
[2019-02-19] MEDS: LABETALOL 100 MG TAB PO SCH ×2 (00:04→10:13)
[2019-02-19 01:26] LABS: Uric Acid 5.3 mg/dL (3.7-7.4)
[2019-02-19 02:04] VITALS: BMI 51.5
[2019-02-19 08:18] LABS: Glucose,Whole Blood 101 mg/dL (75-99)
--- NOTE | 2019-02-19 08:23 | P.HPOB ---
History of Present Illness H&P Date: 02/19/19 Chief Complaint: Intrauterine 30 weeks: Gestational diabetes: Gest atceline Ortega is a 29-year-old female who is 29 and 6 weeks gestation who was seen by maternal medicine yesterday for gestational diabetes. They have started her on metformin to try and regulate her blood sugars. However, they also noted that she had some mild elevations in her blood pressure while she was there and while they ordered pre-clamped labs were negative the informed her that they want her to check her blood pressure at home. At home she relates that she had blood pressure 146/96 she came into the emergency room. [facility] emergency room rather than send her to labor and delivery began the evaluation she did have some mildly elevated blood pressures she had heart tones that were noted and they ordered a CMP which showed normal AST and ALTs and platelets. She's noted at 1+ protein in her P. At this point the notified me of her being in the hospital I requested that she be transferred to labor and delivery summary for evaluation to be done. We ordered the remainder of the pre-clamped labs which were all negative including a rotating creatinine ratio of 0.02. Due to these findings and to turning she is not preeclamptic at this time and that we just have gestational hypertension we admitted her for observation status as she had several blood pressures that were 180s over 90s and 170s over 90s. Each time that she had these blood pressures we were ready to revise hydralazine to bring her blood pressure down but repeat blood pressure was normal therefore, labetalol 100 mg was provided that we'll start twice a day and titrate in the next few days as needed. Since the initial blood pressure elevations and the initiation of labetalol, her blood pressures have improved. The last blood pressure 1:30 over 80s. She has no other signs or symptoms of preeclampsia. On physical exam vital signs are stable and afebrile. Heart regular, lungs clear, extremities without pain. There is also minimal peripheral edema. Deep tendon reflexes are 1+ to 2+ bilaterally. There is no clonus. Gravid uterus is noted and a category 1 tracing is noted. She denies headache, epigastric pain, or visual changes. Assessment intrauterine at 20 weeks with gestational diabetes recently diagnosed and started on metformin and recent diagnosis of gestational hypertension. At this time we are comanaging with maternal- medicine and will be hopefully discharging her home later today with plans to bring her back in a few days for repeat blood pressure check. Should some other change occur and some other issue that requires more acuity of care present then we'll plan her to transfer her to maternal medicine. Past Medical History Past Medical History: No Reported History Additional Past Medical History / Comment(s): Gestational DM History of Any Multi-Drug Resistant Organisms: None Reported Past Surgical History: Section Past Anesthesia/Blood Transfusion Reactions: No Reported Reaction Past Psychological History: Depression Smoking Status: Former smoker Past Alcohol Use History: Occasional Past Drug Use History: None Reported - Past Family History Mother Family Medical History: No Reported History Medications and Allergies Home Medications Medication Instructions Recorded Confirmed Type metFORMIN HCL [Glucophage] 500 mg PO BID 02/18/19 02/19/19 History Pnv,Calcium 72/Iron/Folic Acid 1 tab PO ONCE 02/19/19 02/19/19 History [ Plus Tablet] Allergies Allergy/AdvReac Type Severity Reaction Status Date / Time No Known Allergies Allergy Verified 02/18/19 20:11 Exam Osteopathic Statement: *. No significant issues noted on an osteopathic structural exam other than those noted in the History and Physical/Consult. Vital Signs Temp Pulse Resp BP Pulse Ox 02/19/19 01:35 98 F 113 H 16 181/97 96 Intake and Output 02/18/19 02/19/19 02/19/19 22:59 06:59 14:59 Other: Weight 136.078 kg Results Abnormal Lab Results - Last 24 Hours (Table) 02/19/19 Range/Units 08:16 POC Glucose (mg/dL) 101 H (75-99) mg/dL
[2019-02-19] MEDS ORDERED: metFORMIN 500 MG TAB PO SCH (08:30)
[2019-02-19] MEDS ORDERED: PRENATAL VIT-IRON-FOLIC ACID 1 EACH CAP PO SCH (09:00)
[2019-02-19 09:25] VITALS: BP 122/62; PULSE 96; RESP 18; TEMP 98.5
[2019-02-19 11:20] LABS: Glucose,Whole Blood 170 mg/dL (75-99)
--- NOTE | 2019-02-19 11:59 | P.DS ---
Providers Date of admission: 02/19/19 01:28 Expected date of discharge: 02/19/19 Attending physician: Marcelo Mcfarland Primary care physician: Stated None Hospital Course: Shannon is doing well. She denies any signs or symptoms of preeclampsia and is feeling good this morning. We'll plan to discharge her to home with her blood pressures improving on labetalol. It is noted that she had a glucose at 170 but she is just starting her metformin was allowed time to adjust. She will notify mitral medicine for any significant elevations in her blood sugars. She was instructed patient to check her blood pressures at home, should she have any significant elevation she's returned to labor and delivery. We'll have her start her baby will twice daily and she hasn't 1 with me on Thursday for reevaluation and potential adjustments of the dose. All other questions were answered for her at this time. She's had no further significant elevations in her blood pressure and the last several had actually been within the normal range. Patient Condition at Discharge: Good Plan - Discharge Summary New Discharge Prescriptions: New Labetalol [Trandate] 100 mg PO BID #60 tablet No Action metFORMIN HCL [Glucophage] 500 mg PO BID Pnv,Calcium 72/Iron/Folic Acid [ Plus Tablet] 1 tab PO ONCE Discharge Medication List metFORMIN HCL [Glucophage] 500 mg PO BID 02/18/19 [History] Labetalol [Trandate] 100 mg PO BID #60 tablet 02/19/19 [Rx] Pnv,Calcium 72/Iron/Folic Acid [ Plus Tablet] 1 tab PO ONCE 02/19/19 [History] Follow up Appointment(s)/Referral(s): Marcelo Mcfarland DO [Doctor of Osteopathic Medicine] - 02/23/19 Activity/Diet/Wound Care/Special Instructions: Limited activity over the next few days. Close monitoring of blood sugars and occasional retesting up from blood pressures. If any significant elevations of blood pressure systolic really 150 or diastolic greater than 100 return to labor and delivery. Any signs or symptoms of preeclampsia which she and I reviewed in detail on several occasions returned to labor and delivery. If blood sugars remain segmentally elevated through the weekend despite metformin she is to call maternal- medicine for adjustments of medication on Thursday or Thursday. Discharge Disposition: HOME SELF-CARE
== END 2019-02-19 12:15 | disposition home or self-care (01) ==
LOC: FBPOP 23:41 → UNDOADMOB 02-19 01:28 → 4FBP 02-19 01:28 → UNDODISOB 02-19 12:15
PROVIDERS: ADMIT Obstetrics & Gynecology; ATTEND Obstetrics & Gynecology
DX: O24.415 Gestational diabetes mellitus in pregnancy, controlled by oral hypoglycemic drugs (principal); Z3A.30 30 weeks gestation of pregnancy; O13.3 Gestational [pregnancy-induced] hypertension without significant proteinuria, third trimester; O99.343 Other mental disorders complicating pregnancy, third trimester; Z87.891 Personal history of nicotine dependence; F32.9 Major depressive disorder, single episode, unspecified; O34.219 Maternal care for unspecified type scar from previous cesarean delivery; Z79.84 Long term (current) use of oral hypoglycemic drugs
CPT/HCPCS: 59025; 82570; 84156; 83615; 84550; G0463; G0378; S0197; 96361; 99215

== ENCOUNTER 2019-03-09 10:33 | Outpatient (CLI) | payer OTHER ==
[2019-03-09 11:09] LABS: Appearance,Urine Cloudy (Clear); Bacteria,Urine Rare /hpf; Bilirubin,Urine Negative (Negative); Blood,Urine Negative (Negative); Color,Urine Yellow; Glucose,Urine (UA) Negative (Negative); Ketones,Urine Trace (Negative); Leukocyte Esterase,Urine Large (Negative); Mucus,Urine Many /hpf; Nitrite,Urine Negative (Negative); Protein,Urine 1+ (Negative); RBC,Urine 1 /hpf (0-5); Specific Gravity,Urine 1.033 (1.001-1.035); Squamous Epithelial Cell,Urine 22 /hpf (0-4); WBC,Urine 8 /hpf (0-5)
[2019-03-09 11:33] LABS: Creatinine,Urine Random 303.9 mg/dL
[2019-03-09 11:43] LABS: Basophils % (A) 0 %; Eosinophils # (A) 0.1 k/uL (0-0.7); Eosinophils % (A) 1 %; HGB 11.7 gm/dL (11.4-16.0); Lymphocytes # (A) 1.1 k/uL (1.0-4.8); Lymphocytes % (A) 17 %; MCH 30.2 pg (25.0-35.0); MCHC 33.5 g/dL (31.0-37.0); MCV 90.1 fL (80.0-100.0); Mean Platelet Volume 6.3; Monocytes # (A) 0.4 k/uL (0-1.0); Monocytes % (A) 6 %; Neutrophils # (A) 4.8 k/uL (1.3-7.7); Neutrophils % (A) 74 %; Platelet Count 300 k/uL (150-450); RBC 3.89 m/uL (3.80-5.40); RDW 12.8 % (11.5-15.5); WBC 6.4 k/uL (3.8-10.6)
[2019-03-09 12:04] LABS: ALT 19 U/L (9-52); AST 13 U/L (14-36); African American GFR (CKD) >90 (>60 ml/min/1.73 sqM); Blood Urea Nitrogen 9 mg/dL (7-17); LDH 282 U/L (313-618); Non-African American GFR(CKD) >90 (>60 ml/min/1.73 sqM); Uric Acid 5.7 mg/dL (3.7-7.4)
== END 2019-03-09 12:20 | disposition home or self-care (01) ==
LOC: FBPOP 10:33
PROVIDERS: ATTEND Obstetrics & Gynecology
DX: O14.90 Unspecified pre-eclampsia, unspecified trimester (principal); Z3A.00 Weeks of gestation of pregnancy not specified
CPT/HCPCS: 81001; 82565; 82570; 83615; 84156; 84450; 84460; 84520; 84550; 85025

== ENCOUNTER 2019-04-05 12:12 | Outpatient (CLI) | payer OTHER ==
[2019-04-05 13:10] LABS: ALT 15 U/L (9-52); AST 11 U/L (14-36); African American GFR (CKD) >90 (>60 ml/min/1.73 sqM); Blood Urea Nitrogen 14 mg/dL (7-17); LDH 322 U/L (313-618); Non-African American GFR(CKD) >90 (>60 ml/min/1.73 sqM)
[2019-04-05 13:14] LABS: Basophils % (A) 0 %; Eosinophils # (A) 0.1 k/uL (0-0.7); Eosinophils % (A) 1 %; HCT 38.9 % (34.0-46.0); HGB 13.2 gm/dL (11.4-16.0); Lymphocytes # (A) 1.4 k/uL (1.0-4.8); Lymphocytes % (A) 14 %; MCH 29.3 pg (25.0-35.0); MCV 86.2 fL (80.0-100.0); Monocytes # (A) 0.5 k/uL (0-1.0); Monocytes % (A) 5 %; Neutrophils # (A) 7.6 k/uL (1.3-7.7); Neutrophils % (A) 79 %; Platelet Count 363 k/uL (150-450); RBC 4.51 m/uL (3.80-5.40); WBC 9.6 k/uL (3.8-10.6)
[2019-04-05 13:40] LABS: Appearance,Urine Cloudy (Clear); Bacteria,Urine Rare /hpf; Bilirubin,Urine Negative (Negative); Blood,Urine Negative (Negative); Color,Urine Yellow; Glucose,Urine (UA) Negative (Negative); Hyaline Casts,Urine 1 /lpf (0-2); Ketones,Urine Negative (Negative); Leukocyte Esterase,Urine Trace (Negative); Mucus,Urine Occasional /hpf; Nitrite,Urine Negative (Negative); Protein,Urine 1+ (Negative); RBC,Urine <1 /hpf (0-5); Specific Gravity,Urine 1.029 (1.001-1.035); Squamous Epithelial Cell,Urine 4 /hpf (0-4); Urobilinogen,Urine <2.0 mg/dL (<2.0); WBC,Urine 5 /hpf (0-5)
[2019-04-05 14:09] VITALS: BP 141/95; PULSE 121; RESP 18; TEMP 98.2
--- NOTE | 2019-04-11 08:25 | P.MSEPDOC ---
Presenting Problems - Arrival Data Date of Arrival on Unit: 04/05/19 Time of Arrival on Unit: 12:12 Mode of Transport: Ambulatory - Complaint OB-Reason for Admission/Chief Complaint: PIH Medical History - Information : 5 Para: 2 Term: 2 : 0 Abortions: Spontaneous or Elective: 2 Number of Living Children: 2 - Gestational Age Gestational Age by JOSEPH (wks/days): 36 Weeks and 2 Days - History Complications: Prior Review of Systems - Review of Systems Constitutional: No problems Breast: No problems ENT: No problems Cardiovascular: No problems Respiratory: No problems Gastrointestinal: No problems Genitourinary: No problems Musculoskeletal: No problems Neurological: No problems Skin: No problems Vital Signs - Temperature Temperature: 98.2 F Temperature Source: Oral - Pulse Right Sitting Brachial Pulse Rate: 121 Pulse Assessment Method: Automatic Cuff - Respirations Respiratory Rate: 18 Oxygen Delivery Method: Room Air O2 Sat by Pulse Oximetry: 99 - Blood Pressure Right Arm Sitting Blood Pressure: 141/95 Blood Pressure Mean: 110 Blood Pressure Source: Automatic Cuff Medical Screen Scoring (Pre) - Cervical Exam Dilation: Exam Deferred Effacement: Exam Deferred Membranes: Intact - Uterine Contractions Frequency: > 5 minutes apart = 1 Duration: N/A Intensity: N/A - Maternal Vital Signs Maternal Temperature: N/A Maternal Blood Pressure: N/A Signs of Preeclampsia: N/A Maternal Respirations: N/A - Maternal Trauma Maternal Trauma: N/A - Assessment - Baby A Baseline FHR: 155 Heart Rate - NICHD Category: Category I (Normal) = 0 NST: Reactive Position: N/A Station: N/A - Total Score - Baby A Total Score - Baby A: 1 - Total Score - Baby B Total Score - Baby B: 1 - Total Score - Baby C Total Score - Baby C: 1 - Level of Risk - Baby A Level of Risk - Baby A: Low (0-5) - Level of Risk - Baby B Level of Risk - Baby B: Low (0-5) - Level of Risk - Baby C Level of Risk - Baby C: Low (0-5) Physician Notification (Pre) - Physician Notified Physician Notified Date: 04/05/19 Physician Notified Time: 13:52 New Order Received: Yes - Notification Comment Comment: Denisse stafford\Dr. Mcfarland, reviewed labs and serial BP; Pt to be d/c home, to follow up Thursday for BP check and NST at [facility]; scheduled for R C/S Thursday. Disposition - Disposition OB Disposition: Discharge to home, Written follow up instructions reviewed Discharge Date: 04/05/19 Discharge Time: 13:55 I agree with the RN Medical Screening Exam: Yes Risk & Benefit of care provided described in d/c instruction: Yes Diagnosis: GESTATIONAL HTN W/O SIGNIFICANT PROTEINURIA, THIRD TRIMESTER
== END 2019-04-05 13:55 | disposition home or self-care (01) ==
LOC: FBPOP 12:12
PROVIDERS: ATTEND Obstetrics & Gynecology
DX: O13.3 Gestational [pregnancy-induced] hypertension without significant proteinuria, third trimester (principal); Z3A.36 36 weeks gestation of pregnancy
CPT/HCPCS: 59025; 82570; 84156; 82565; 83615; 84450; 84460; 84520; 84550; 85025; 81001; G0463; 99215

== ENCOUNTER 2019-04-11 09:31 | Inpatient (IN) | payer OTHER ==
[2019-04-07 14:44] VITALS: BMI 52.3
[2019-04-11] MEDS ORDERED: ceFAZolin 3 GM in SODIUM CHLORIDE 0.9% 100 ML IVPB ONE (09:43)
[2019-04-11] MEDS ORDERED: CITRIC ACID-SODIUM CITRATE 15 ML CUP PO ONE (09:43)
[2019-04-11 10:31] LABS: Basophils % (A) 0 %; Eosinophils # (A) 0.1 k/uL (0-0.7); Eosinophils % (A) 1 %; HCT 39.2 % (34.0-46.0); HGB 13.3 gm/dL (11.4-16.0); Lymphocytes # (A) 1.5 k/uL (1.0-4.8); Lymphocytes % (A) 15 %; MCH 28.7 pg (25.0-35.0); MCHC 33.9 g/dL (31.0-37.0); MCV 84.5 fL (80.0-100.0); Mean Platelet Volume 7.1; Monocytes # (A) 0.5 k/uL (0-1.0); Monocytes % (A) 5 %; Neutrophils # (A) 7.7 k/uL (1.3-7.7); Neutrophils % (A) 77 %; Platelet Count 325 k/uL (150-450); RBC 4.63 m/uL (3.80-5.40)
[2019-04-11 10:58] LABS: Glucose,Whole Blood 135 mg/dL (75-99)
[2019-04-11] MEDS: LACTATED RINGERS 1,000 ML IV SCH ×4 (11:00→22:00)
[2019-04-11] MEDS ORDERED: ONDANSETRON 4 MG/2 ML VIAL ONE (12:27)
[2019-04-11] MEDS ORDERED: NALBUPHINE 10 MG/ML (1 ML AMP) ONE (12:27)
[2019-04-11] MEDS ORDERED: OXYTOCIN 10 UNIT/ML 1 ML VIAL ONE (12:27)
[2019-04-11] MEDS ORDERED: PHENYLEPHRINE-0.9% NACL SYG 1 MG/10 ML SYRINGE ONE (12:27)
[2019-04-11] MEDS ORDERED: MORPHINE SULFATE (PF) 0.3 MG/0.3 ML SYR ONE (12:27)
[2019-04-11] MEDS ORDERED: KETOROLAC 30 MG/ML 1 ML VIAL ONE (12:27)
[2019-04-11] MEDS ORDERED: diphenhydrAMINE 50 MG/ML 1 ML VIAL IVP PRN ×2 (13:24)
[2019-04-11] MEDS ORDERED: NALOXONE 0.4 MG/ML 1 ML VIAL IV PRN (13:24)
[2019-04-11] MEDS ORDERED: ONDANSETRON 4 MG/2 ML VIAL IVP PRN (13:24)
[2019-04-11] MEDS ORDERED: diphenhydrAMINE 50 MG CAP PO PRN (13:24)
[2019-04-11] MEDS ORDERED: diphenhydrAMINE 25 MG CAP PO PRN (13:24)
[2019-04-11] MEDS ORDERED: METOCLOPRAMIDE 5 MG/ML 2 ML VIAL IVP PRN (13:24)
[2019-04-11] MEDS ORDERED: ACETAMINOPHEN TAB 325 MG TAB PO PRN (13:24)
[2019-04-11] MEDS ORDERED: SIMETHICONE 80 MG CHEWABLE PO PRN (13:24)
[2019-04-11] MEDS ORDERED: ZOLPIDEM 5 MG TAB PO PRN (13:24)
--- NOTE | 2019-04-11 13:31 | P.HPOB ---
History of Present Illness H&P Date: 04/11/19 Chief Complaint: Intrauterine at term: Gestation diabetes: Gestational hypertensio Shannon is a 29-year-old at 37 weeks gestation who arrives for repeat low transverse section and 2 ligation for family planning. Her Precis course has been complicated by gestational hypertension and gestational diabetes. She is aware she'll need gestational diabetic/diabetic screening 6 weeks following delivery. We did comanage her with maternal- medicine with her gestational hypertension starting as early as 24 weeks. She has been treated for this gestational diabetes since approximately 32 weeks. Pertinent labs A+ blood type, Rh and it was negative, rubella immune, hepatitis B surface antigen/RPR/HIV were all negative. She has had multiple opportunities to have blood work drawn for superimposed preeclampsia, and all those have been normal. Her blood sugars did improve following evaluation and treatment through maternal- medicine. On physical exam blood pressure slightly elevated and fasting blood sugar this afternoon 135. We'll reevaluate moving forward. Should not need any further treatment for gestational diabetes. We'll continue labetalol. This is a morbidly obese female HEENT is unremarkable. Heart regular, lungs clear, ext remities without pain. Abdomen is gravid. Everyone tracing is noted. Assessment intrauterine at term: Gestational diabetes: Gestational hypertension: Undesired fertility Plan repeat low transverse section with lateral tubal occlusion Filshie clips Past Medical History Past Medical History: Diabetes Mellitus, GERD/Reflux, Hypertension, Skin Disorder Additional Past Medical History / Comment(s): Gestational DM. Eczema. History of Any Multi-Drug Resistant Organisms: None Reported Past Surgical History: Section Additional Past Surgical History / Comment(s): C-S x2. Past Anesthesia/Blood Transfusion Reactions: No Reported Reaction, Family History of Problems w/ Anesthesia Additional Past Anesthesia/Blood Transfusion Reaction / Comment(s): Grandmother has problem waking from anesthesia. Past Psychological History: No Psychological Hx Reported Smoking Status: Former smoker Past Alcohol Use History: Occasional Additional Past Alcohol Use History / Comment(s): Smoked age 18, 1/2 ppd, quit 09/2018. No alcohol during Past Drug Use History: None Reported - Past Family History Mother Family Medical History: No Reported History Father Family Medical History: Cancer Sister(s) Family Medical History: Pulmonary Embolus Medications and Allergies Home Medications Medication Instructions Recorded Confirmed Type metFORMIN HCL [Glucophage] 1,000 mg PO BID 02/18/19 04/11/19 History Labetalol [Trandate] 100 mg PO BID #60 tablet 02/19/19 04/11/19 Rx Pnv,Calcium 72/Iron/Folic Acid 1 tab PO ONCE 02/19/19 04/11/19 History [ Plus Tablet] Allergies Allergy/AdvReac Type Severity Reaction Status Date / Time No Known Allergies Allergy Verified 04/07/19 14:30 Exam Osteopathic Statement: *. No significant issues noted on an osteopathic structural exam other than those noted in the History and Physical/Consult. Vital Signs Temp Pulse Resp BP Pulse Ox 04/11/19 09:42 98.4 F 129 H 18 169/84 97 Intake and Output 04/10/19 04/11/19 04/11/19 22:59 06:59 14:59 Other: Weight 138.346 kg Results Result Diagrams: 04/11/19 09:55 Abnormal Lab Results - Last 24 Hours (Table) 04/11/19 Range/Units 10:57 POC Glucose (mg/dL) 135 H (75-99) mg/dL
--- NOTE | 2019-04-11 13:35 | P.OP ---
Date of Procedure: 04/11/19 Preoperative Diagnosis: Intrauterine at term: Prior section: Gestational hypertension: Gestational diabetes Postoperative Diagnosis: Same Procedure(s) Performed: Repeat low transverse section with bilateral occlusion of fallopian tubes Filshie clips Anesthesia: spinal Surgeon: Marcelo Mcfarland Plate Painter Apprentice #1: Polly Smith Estimated Blood Loss (ml): 800 Pathology: other (Placenta) Condition: stable Disposition: floor Operative Findings: Male scores of 8 and 8 at one and 5 minutes respectively and weight was 9 pounds Description of Procedure: Patient was taken to the operating suite where a spinal anesthetic was found be adequate. She was prepped and draped in the normal sterile fashion and placed in dorsal supine vision with leftward tilt. Initially a Pfannenstiel skin incision was made and this incision was then carried through to underlying layer of fascia with the second knife. Fascia was then nicked in the midline and this opening was extended laterally with Gruber scissors. Superior and inferior aspect of this incision were then grasped tented up and bluntly and sharply dissected off the rectus muscles. Rectus muscles were then divided midline and sharp dissection through the peritoneum was made. This opening was then extended superiorly and inferiorly with good visualization of both bowel bladder. Some omental adhesions were noted and easily reduced. Bladder blade was then placed and knife was used to incise uterus well above the bladder reflection. This incision was then fully developed with hemostat and bluntly extended. Head was then H medically delivered followed by anterior posterior shoulders with mouth and nares being bulb suctioned. Once baby was fully delivered umbilical cord was clamped cut usual fashion an nursery personnel was present to assume care. Placenta was then delivered intact and Pitocin was added to the IV. Uterus was then exteriorized cleared of clots and debris and closed in 1 layer with 0 Vicryl suture. Once excellent hemostasis was obtained fish clips were applied 3 cm from uterine cornu bilaterally and blood and debris was suctioned from the posterior cul-de-sac. Uterus was then reinserted the abdomen and reinspection of the patient incision reveals hemostasis. Due to adhesions of the omentum along the anterior abdominal wall peritoneum was not closed muscles were reapproximated to keep peritoneum and uterus in the abdomen. Once this was completed fascial layer was closed with 0 Vicryl suture. One layer of 3-0 Vicryl was placed in deep subcuticular tissues reapproximate skin and close space. Skin was then closed with 3-0 Vicryl subcu tickly. Sponge, lap, needle counts were all correct 2. Patient was then taken to the recovery room in stable and satisfactory condition.
[2019-04-11] MEDS ORDERED: LACTATED RINGERS 500 ML IV ONE (17:30)
[2019-04-11] MEDS: LABETALOL 100 MG TAB PO SCH (17:37)
[2019-04-11] MEDS: SENNOSIDES-DOCUSATE SODIUM 1 EACH TAB PO SCH (19:39)
[2019-04-11] MEDS: ceFAZolin 3 GM in SODIUM CHLORIDE 0.9% 100 ML IVPB SCH (19:39)
[2019-04-11 19:45] LABS: Hemoglobin A1C 6.6 % (4.0-6.0)
[2019-04-11] MEDS: KETOROLAC 30 MG/ML 1 ML VIAL IVP PRN (23:54)
[2019-04-12] MEDS: LACTATED RINGERS 1,000 ML IV SCH ×5 (01:04→20:19)
[2019-04-12] MEDS: LABETALOL 100 MG TAB PO SCH ×3 (01:04→22:13)
[2019-04-12] MEDS: ceFAZolin 3 GM in SODIUM CHLORIDE 0.9% 100 ML IVPB SCH (02:33)
[2019-04-12] MEDS: KETOROLAC 30 MG/ML 1 ML VIAL IVP PRN (07:59)
[2019-04-12] MEDS: SENNOSIDES-DOCUSATE SODIUM 1 EACH TAB PO SCH ×2 (07:59→20:08)
[2019-04-12 08:07] LABS: Basophils % (A) 0 %; Eosinophils % (A) 0 %; HCT 32.3 % (34.0-46.0); HGB 10.9 gm/dL (11.4-16.0); Lymphocytes % (A) 11 %; MCH 29.1 pg (25.0-35.0); MCHC 33.7 g/dL (31.0-37.0); MCV 86.2 fL (80.0-100.0); Mean Platelet Volume 8.1; Monocytes # (A) 0.5 k/uL (0-1.0); Monocytes % (A) 5 %; Neutrophils # (A) 7.3 k/uL (1.3-7.7); Neutrophils % (A) 83 %; Platelet Count 237 k/uL (150-450); RBC 3.75 m/uL (3.80-5.40); WBC 8.9 k/uL (3.8-10.6)
--- NOTE | 2019-04-12 09:25 | P.PNOBGPC ---
Subjective - Subjective Principal diagnosis: Postop day 1 Interval history: Shannon is doing very well postop day 1. She is involuting, voiding and tolerating her diet. She voices no complaint. Vital signs are stable. She's had some mild elevations in blood pressure but labetalol has been restarted. Patient reports: Reports appetite normal, Reports voiding normally, Reports pain well controlled, Reports ambulating normally : in NICU Objective - Vital Signs Latest vital signs: Vital Signs Temp Pulse Resp BP Pulse Ox 04/12/19 08:00 98.3 F 92 18 141/80 04/12/19 04:00 98.4 F 102 H 18 138/77 97 04/12/19 00:00 98.2 F 89 18 127/78 97 04/11/19 20:00 97.5 F L 95 18 134/67 97 04/11/19 17:35 98.1 F 90 16 138/83 100 04/11/19 15:30 98.7 F 85 16 142/70 97 04/11/19 15:00 97.5 F L 84 18 149/72 04/11/19 14:30 98.5 F 82 18 131/61 97 04/11/19 14:15 97.8 F 81 16 141/71 99 04/11/19 14:00 97.8 F 85 18 142/71 99 04/11/19 13:45 98.2 F 90 18 116/56 99 04/11/19 13:30 97.9 F 86 16 113/56 100 04/11/19 09:42 98.4 F 129 H 18 169/84 97 Intake and Output 04/11/19 04/12/19 04/12/19 22:59 06:59 14:59 Intake Total 1000 Output Total 300 200 Balance -300 800 Intake: IV 1000 Lactated Ringers 1,000 ml 1000 @ 125 mls/hr IV .Q8H [facility] Rx#:[id number] Output: Urine 300 200 Uretheral (Currie) 200 Other: Voiding Method Indwelling Catheter - Exam Lungs: bilateral: normal Chest: Normal S1, Normal S2 Extremities: Present: normal Abdomen: Present: normal appearance, soft. Absent: distention, tenderness Incision: Present: normal, dry, intact Uterus: Present: normal, firm - Labs Labs: Abnormal Lab Results - Last 24 Hours (Table) 04/11/19 04/11/1919 Range/Units 09:55 10:57 06:39 RBC 3.75 L (3.80-5.40) m/uL Hgb 10.9 L (11.4-16.0) gm/dL Hct 32.3 L (34.0-46.0) % POC Glucose (mg/dL) 135 H (75-99) mg/dL Hemoglobin A1c 6.6 H (4.0-6.0) %
[2019-04-12] MEDS: HYDROcodone/APAP 7.5-325MG 1 EACH TAB PO PRN ×3 (10:08→22:09)
[2019-04-12] MEDS: IBUPROFEN 600 MG TAB PO PRN (20:08)
[2019-04-13] MEDS: HYDROcodone/APAP 7.5-325MG 1 EACH TAB PO PRN ×3 (04:00→16:49)
[2019-04-13] MEDS: IBUPROFEN 600 MG TAB PO PRN ×3 (07:55→20:30)
[2019-04-13] MEDS: SENNOSIDES-DOCUSATE SODIUM 1 EACH TAB PO SCH ×2 (07:56→20:30)
--- NOTE | 2019-04-13 08:44 | P.PNOBGPC ---
Subjective - Subjective Principal diagnosis: Postop day 2 Interval history: Shannon is ambulating, voiding and tolerating her diet. She is also passing flatus. All questions were answered for her. Baby is in special care nursery therefore we will hold discharge for now Patient reports: Reports appetite normal, Reports voiding normally, Reports pain well controlled, Reports ambulating normally : in NICU Objective - Vital Signs Latest vital signs: Vital Signs Temp Pulse Resp BP Pulse Ox 04/13/19 08:00 98.1 F 94 18 127/76 98 04/13/19 00:00 98.1 F 89 18 115/67 99 04/12/19 16:00 97.6 F 98 15 115/42 98 04/12/19 12:00 97 F L 89 15 116/57 97 - Exam Lungs: bilateral: normal Chest: Normal S1, Normal S2 Extremities: Present: normal Abdomen: Present: normal appearance, soft. Absent: distention, tenderness Incision: Present: normal, dry, intact Uterus: Present: normal, firm
[2019-04-13] MEDS: LABETALOL 100 MG TAB PO SCH ×2 (10:37→20:30)
[2019-04-14] MEDS: HYDROcodone/APAP 7.5-325MG 1 EACH TAB PO PRN (03:40)
[2019-04-14] MEDS: SENNOSIDES-DOCUSATE SODIUM 1 EACH TAB PO SCH (09:45)
[2019-04-14] MEDS: LABETALOL 100 MG TAB PO SCH (09:45)
[2019-04-14] MEDS: IBUPROFEN 600 MG TAB PO PRN (09:46)
--- NOTE | 2019-04-14 10:41 | P.DS ---
Providers Date of admission: 04/11/19 09:31 Expected date of discharge: 04/14/19 Attending physician: Marcelo Mcfarland Primary care physician: Stated None Hospital Course: Shannon is doing very well postop day 3. She is requesting discharge home today. Vital signs are stable and afebrile. Heart regular, lungs clear, extremities are without pain. Abdomen soft uterus is firm and lochia is reported light. Incisions otherwise clean dry and intact. Discharge instructions were thoroughly reviewed with her in a prescription for Newton and Motrin are forwarded to the pharmacy. She is stable for discharge this time. We'll plan to have her continue labetalol and see me in a week or we can reevaluate her blood pressure and initiate long-term care management. She will also need a Glucola exam after 6 weeks and she is aware of risks of developing or maintaining diabetes . I have also informed her she has mole in the middle of her back needs to be biopsied she will either have me try and do it or she will see her primary care provider as it is not typically in the area that I would normally biopsy. Patient Condition at Discharge: Good Plan - Discharge Summary Discharge Rx Participant: No New Discharge Prescriptions: New Ibuprofen [Motrin] 600 mg PO Q6HR PRN #30 tab PRN Reason: Pain HYDROcodone/APAP 5-325MG [Newton 5-325] 1 tab PO Q4HR PRN #30 tab PRN Reason: Pain No Action metFORMIN HCL [Glucophage] 1,000 mg PO BID Pnv,Calcium 72/Iron/Folic Acid [ Plus Tablet] 1 tab PO ONCE Labetalol [Trandate] 100 mg PO BID #60 tablet Discharge Medication List metFORMIN HCL [Glucophage] 1,000 mg PO BID 02/18/19 [History] Labetalol [Trandate] 100 mg PO BID #60 tablet 02/19/19 [Rx] Pnv,Calcium 72/Iron/Folic Acid [ Plus Tablet] 1 tab PO ONCE 02/19/19 [History] HYDROcodone/APAP 5-325MG [Newton 5-325] 1 tab PO Q4HR PRN #30 tab 04/14/19 [Rx] Ibuprofen [Motrin] 600 mg PO Q6HR PRN #30 tab 04/14/19 [Rx] Follow up Appointment(s)/Referral(s): Marcelo Mcfraland DO [Doctor of Osteopathic Medicine] - 1 Week Activity/Diet/Wound Care/Special Instructions: No heavy lifting, limit stairs and driving, and pelvic rest. If any high temperatures, heavy bleeding, or severe pain call my office Discharge Disposition: HOME SELF-CARE
[2019-04-14 14:08] VITALS: BP 138/84; PULSE 91; RESP 18; TEMP 97.7
== END 2019-04-14 15:35 | disposition home or self-care (01) | DRG 785 ==
LOC: 4FBP 09:31
PROVIDERS: ADMIT Obstetrics & Gynecology; ATTEND Obstetrics & Gynecology
PROC: 10D00Z1 Extraction of Products of Conception, Low, Open Approach (ICD-10-PCS; principal; 2019-04-11 12:00)
PROC: 0UL70CZ Occlusion of Bilateral Fallopian Tubes with Extraluminal Device, Open Approach (ICD-10-PCS; principal; 2019-04-11 12:00)
DX: O13.4 Gestational [pregnancy-induced] hypertension without significant proteinuria, complicating childbirth (principal); O24.425 Gestational diabetes mellitus in childbirth, controlled by oral hypoglycemic drugs; O34.211 Maternal care for low transverse scar from previous cesarean delivery; Z30.2 Encounter for sterilization; Z37.0 Single live birth; Z3A.37 37 weeks gestation of pregnancy; Z79.84 Long term (current) use of oral hypoglycemic drugs; Z87.891 Personal history of nicotine dependence
CPT/HCPCS: 83036; 85025; 86850; 86900; 86901; 88307

== ENCOUNTER 2019-07-07 03:40 | Emergency (ER) | payer OTHER ==
[2019-07-07 03:48] VITALS: RESP 18
[2019-07-07] MEDS ORDERED: LABETALOL 100 MG TAB PO ONE (04:00)
--- NOTE | 2019-07-07 05:25 | ED ---
Recheck HPI - General Chief Complaint: Recheck/Abnormal Lab/Rx Stated Complaint: High BP Time Seen by Provider: 07/07/19 03:47 Source: EMS Mode of arrival: EMS Limitations: no limitations - History of Present Illness Initial Comments: Shannon is a 29-year-old female who presents to the emergency department today via ambulance for evaluation. Patient is 3 months , she is on labetalol for hypertension, patient is prescribed 100 mg by mouth in the morning and 200 night. Patient reports she forgot to take her nighttime dose. She was woke in the middle the night by [id number] son crying, she got up to feed him and reports that she felt some lightheadedness and wasn't feeling well. Her mother told her to go back to bed that she would take care of the baby however patient continued to feel unwell so decided to come to the ER for evaluation. EMS was called upon their arrival they noted the patient was very hypertensive. Patient reports lightheadedness and a pressure head but no vision changes focal neurologic deficits. Patient denies any chest pain palpitations or shortness of breath. Currently greater than 3 months chronic hypertension. - Related Data Home Medications Medication Instructions Recorded Confirmed Escitalopram Oxalate [Lexapro] 10 mg PO DAILY 07/07/19 07/07/19 Previous Rx's Medication Instructions Recorded Labetalol [Trandate] 100 mg PO BID #60 tablet 02/19/19 Allergies Allergy/AdvReac Type Severity Reaction Status Date / Time No Known Allergies Allergy Verified 07/07/19 03:48 Review of Systems ROS Statement: Those systems with pertinent positive or pertinent negative responses have been documented in the HPI. ROS Other: All systems not noted in ROS Statement are negative. Past Medical History Past Medical History: Diabetes Mellitus, GERD/Reflux, Hypertension, Skin Disorder Additional Past Medical History / Comment(s): Gestational DM. Eczema. History of Any Multi-Drug Resistant Organisms: None Reported Past Surgical History: Section Additional Past Surgical History / Comment(s): C-S x2. Past Anesthesia/Blood Transfusion Reactions: No Reported Reaction, Family History of Problems w/ Anesthesia Additional Past Anesthesia/Blood Transfusion Reaction / Comment(s): Grandmother has problem waking from anesthesia. Past Psychological History: Anxiety Smoking Status: Former smoker Past Alcohol Use History: Occasional Past Drug Use History: None Reported - Past Family History Mother Family Medical History: No Reported History Father Family Medical History: Cancer Sister(s) Family Medical History: Pulmonary Embolus General Exam - General Exam Comments Initial Comments: Physical Exam GENERAL: Patient is well-developed and well-nourished. Patient is nontoxic and well-hydrated and is in no distress. HENT: Normocephalic, Atraumatic. EYES: PERRL, EOMI PULMONARY: Unlabored respirations. No audible rales rhonchi or wheezing was noted. CARDIOVASCULAR: There is a regular rate and rhythm without any murmurs gallops or rubs. ABDOMEN: Obese Soft and nontender with normal bowel sounds. SKIN: Skin is clear with no lesions or rashes and otherwise unremarkable. : Deferred NEUROLOGIC: Patient is alert and oriented x3. Moving all extremities spontaneously MUSCULOSKELETAL: Normal extremities with adequate strength and full range of motion. No lower extremity swelling or edema. No calf tenderness. PSYCHIATRIC: Normal psychiatric evaluation. Limitations: no limitations Course Vital Signs 07/07/19 07/07/19 07/07/19 03:42 04:59 05:32 Temperature 98.2 F 98 F Pulse Rate 92 73 79 Respiratory 18 18 18 Rate Blood Pressure 150/90 155/77 149/70 O2 Sat by Pulse 98 98 98 Oximetry Medical Decision Making - Medical Decision Making Patient was seen and evaluated, history is obtained from patient History and physical exam are unremarkable Patient was hypertensive upon arrival however she skipped nighttime dose of 200 mg of labetalol therefore this dose was ordered Patient's blood pressure improved she remained asymptomatic while in the emergency department and patient is comfortable with plan for discharge home continue all medications and follow up with primary care Disposition Clinical Impression: Hypertension Disposition: HOME SELF-CARE Condition: Stable Instructions (If sedation given, give patient instructions): Chronic Hypertension (DC) Is patient prescribed a controlled substance at d/c from ED?: No Referrals: Frantz Lim DO [Primary Care Provider] - 1-2 days
[2019-07-07 05:32] VITALS: BP 149/70; PULSE 79; TEMP 98
== END 2019-07-07 05:41 | disposition home or self-care (01) ==
LOC: EC 03:40
DX: I10 Essential (primary) hypertension (principal); E66.9 Obesity, unspecified; F41.9 Anxiety disorder, unspecified; Z79.899 Other long term (current) drug therapy; Z68.42 Body mass index [BMI] 45.0-49.9, adult; Z87.891 Personal history of nicotine dependence
CPT/HCPCS: 99283

== ENCOUNTER → 2020-04-09 | Outpatient (CLI) | payer OTHER ==
--- NOTE | 2020-05-15 11:44 | P.HPBAR ---
Bariatric H&P - History & Physicial H&P Date: 04/09/20 History & Physicial: Visit/CC: initial visit Patient initial contact: Initial weight: Initial weight in pounds: Height: 5 ft 4 in Initial BMI: Last weight: Current weight: 141.974 kg Current weight in pounds: Current BMI: [place] body weight (based on NIH guidelines): Excess body weight loss: The patient is a 30 year-old F who presents for Bariatric Assessment. Patient presents today for initial constipation. She's had lifetime problems obesity. Her BMI 54. Past Medical History Past Medical History: Diabetes Mellitus, GERD/Reflux, Hypertension, Skin Disorder Additional Past Medical History / Comment(s): Gestational DM. Eczema. History of Any Multi-Drug Resistant Organisms: None Reported Past Surgical History: Section Additional Past Surgical History / Comment(s): C-S x3. Past Anesthesia/Blood Transfusion Reactions: No Reported Reaction, Family History of Problems w/ Anesthesia Additional Past Anesthesia/Blood Transfusion Reaction / Comm: Grandmother has problem waking from anesthesia. 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 No alcohol during Past Drug Use History: None Reported - Past Family History Mother Family Medical History: No Reported History Father Family Medical History: Cancer Sister(s) Family Medical History: Pulmonary Embolus Surgical - Exam Vital Signs Temp Pulse Resp BP 98.1 F 89 20 161/101 04/09/20 13:46 04/09/20 13:46 04/09/20 13:46 04/09/20 13:46 - General well developed, well nourished, no distress - Eyes PERRL - ENT normal pinna - Neck no masses - Respiratory normal expansion - Cardiovascular Rhythm: regular - Abdomen Abdomen: soft, non tender Bariatric Assessment & Plan Plan: Morbid obesity, BMI 54. Patient will be scheduled for EGD. She'll follow-up after this is performed. Bariatric Checklist Checklist: Plan: Checklist: EGD: 1. Hiatal hernia: 2. H. Pylori: HgbA1c: Vitamin D: Smoking: Former smoker Primary care physician referral: Dr. Lim Psychiatry clearance: Cardiology clearance: Sleep study: Diet journal: VTE risk score: VTE risk level: Rehab needs at discharge:
== END | disposition home or self-care (01) ==
CPT/HCPCS: 99211

== ENCOUNTER 2021-03-14 05:56 | Emergency (ER) | payer OTHER ==
[2021-03-14] MEDS ORDERED: LABETALOL 5 MG/ML VIAL MDV IVP STA (06:24)
--- NOTE | 2021-03-14 06:33 | ED ---
URI HPI - General Chief Complaint: Upper Respiratory Infection Stated Complaint: Chest Pains Time Seen by Provider: 03/14/21 06:14 Source: patient, RN notes reviewed Mode of arrival: wheelchair Limitations: no limitations - History of Present Illness Initial Comments: This a 31-year-old female presents emergency Department chief complaint of right-sided chest discomfort. Patient states that she has been coughing quite a bit since she's been diagnosed with COVID-19 6 days ago. Patient states that she's had low-grade temps, body aches, nasal congestion, cough. She states is nonproductive. Patient denies any prior cardiac disease other than having history of hypertension. She states she takes labetalol has not taken her morning dose. She states her shortness breath is minimal she's had to hurts to press on her chest. - Related Data Previous Rx's Medication Instructions Recorded Labetalol [Trandate] 100 mg PO BID #60 tablet 02/19/19 Allergies Allergy/AdvReac Type Severity Reaction Status Date / Time No Known Allergies Allergy Verified 03/14/21 07:08 Review of Systems ROS Statement: Those systems with pertinent positive or pertinent negative responses have been documented in the HPI. ROS Other: All systems not noted in ROS Statement are negative. Past Medical History Past Medical History: Diabetes Mellitus, GERD/Reflux, Hypertension, Skin Disorder Additional Past Medical History / Comment(s): Gestational DM. Eczema. History of Any Multi-Drug Resistant Organisms: None Reported Past Surgical History: Section Additional Past Surgical History / Comment(s): C-S x3. Past Anesthesia/Blood Transfusion Reactions: No Reported Reaction, Family History of Problems w/ Anesthesia Additional Past Anesthesia/Blood Transfusion Reaction / Comment(s): Grandmother has problem waking from anesthesia. Past Psychological History: Anxiety Smoking Status: Former smoker Past Alcohol Use History: Occasional Past Drug Use History: None Reported - Past Family History Mother Family Medical History: No Reported History Father Family Medical History: Cancer Sister(s) Family Medical History: Pulmonary Embolus General Exam Limitations: no limitations General appearance: alert, in no apparent distress Head exam: Present: atraumatic, normocephalic, normal inspection Eye exam: Present: normal appearance, PERRL, EOMI. Absent: scleral icterus, conjunctival injection, periorbital swelling ENT exam: Present: normal exam, normal oropharynx, mucous membranes moist Neck exam: Present: normal inspection. Absent: tenderness, meningismus, lymphadenopathy Respiratory exam: Present: normal lung sounds bilaterally, chest wall tenderness. Absent: respiratory distress, wheezes, rales, rhonchi, stridor Cardiovascular Exam: Present: regular rate, normal rhythm, normal heart sounds. Absent: systolic murmur, diastolic murmur, rubs, gallop, clicks GI/Abdominal exam: Present: soft, normal bowel sounds. Absent: distended, tenderness, guarding, rebound, rigid Course Vital Signs 03/14/21 06:03 Temperature 99.0 F Pulse Rate 101 H Respiratory 20 Rate Blood Pressure 162/107 O2 Sat by Pulse 98 Oximetry Medical Decision Making - EKG Data -: EKG Interpreted by Me EKG Comments: EKG performed at 645 sinus rhythm rate of 84 [place] 132 QRS 84 QT/QTC 370/437 Disposition Clinical Impression: COVID-19, Costochondritis Disposition: HOME SELF-CARE Condition: Stable Instructions (If sedation given, give patient instructions): Coronavirus Disease 2019 (COVID-19) Additional Instructions: Please return to the Emergency Department if symptoms worsen or any other concerns. Is patient prescribed a controlled substance at d/c from ED?: No Referrals: Frantz Lim DO [Primary Care Provider] - 1-2 days Time of Disposition: 07:20
--- NOTE | 2021-03-14 06:43 | XR ---
EXAMINATION TYPE: XR chest 2V DATE OF EXAM: 03/14/2021 COMPARISON: NONE HISTORY: Short of breath TECHNIQUE: 2 views FINDINGS: Heart and mediastinum are normal. Lungs are clear. Diaphragm is normal. Bony thorax is inta ct. IMPRESSION: Normal chest.
[2021-03-14] MEDS ORDERED: SODIUM CHLORIDE 0.9% 50 ML IVPB ONE (07:00)
[2021-03-14] MEDS ORDERED: CASIRIVIMAB/IMDEVIMAB (EUA) 1,200 MG in SODIUM CHLORIDE 0.9% 100 ML IVPB ONE (07:15)
[2021-03-14 09:52] VITALS: BP 147/100; PULSE 92; RESP 18; TEMP 98.2
== END 2021-03-14 09:51 | disposition home or self-care (01) ==
LOC: EC 05:56
DX: U07.1 COVID-19 (principal); M94.0 Chondrocostal junction syndrome [Tietze]; E11.9 Type 2 diabetes mellitus without complications; I10 Essential (primary) hypertension; Z87.891 Personal history of nicotine dependence
CPT/HCPCS: 96375 ×2; 99285 ×2; 93005; 71046; M0243; Q0243

== ENCOUNTER 2022-12-01 02:03 | Emergency (ER) | payer OTHER ==
[2022-12-01 02:12] VITALS: RESP 18; TEMP 98.1
--- NOTE | 2022-12-01 04:21 | ED ---
Neck Injury/Pain HPI - General Chief Complaint: Neck Pain/Injury Stated Complaint: Neck Pain/Stiffness Time Seen by Provider: 12/01/22 03:59 Source: RN notes reviewed, old records reviewed Mode of arrival: ambulatory Limitations: no limitations - History of Present Illness Initial Comments: This is a 32-year-old female to the emergency department for evaluation of neck pain today. Patient states she's had a day and a half neck pain right-sided anterior neck pain. Patient states he she began she woke up with it and thought she may have slept on her neck wrong. She comes to the ER today is a symptoms have persisted. She is able to move her neck freely but states the pain is here in the right side with swelling. Denies fever denies sore throat. Patient has no significant trauma to difficulty breathing or swallowing. Patient does have history of diabetes and high blood pressure. MD Complaint: neck pain -: days(s) (2) Place: home Radiation: right lateral Severity: moderate Severity scale (1-10): 5 Quality: aching Consistency: constant Improves With: none Worsens With: none Context: unknown Associated Symptoms: none Treatments Prior to Arrival: none - Related Data Home Medications Medication Instructions Recorded Confirmed Ibuprofen [Motrin Ib] 600 mg PO Q8H PRN 03/14/21 03/14/21 Labetalol [Trandate] 100 mg PO DAILY 03/14/21 03/14/21 Labetalol [Trandate] 200 mg PO HS 03/14/21 03/14/21 Allergies Allergy/AdvReac Type Severity Reaction Status Date / Time No Known Allergies Allergy Verified 12/01/22 02:12 Review of Systems ROS Statement: Those systems with pertinent positive or pertinent negative responses have been documented in the HPI. ROS Other: All systems not noted in ROS Statement are negative. Past Medical History Past Medical History: Diabetes Mellitus, GERD/Reflux, Hypertension, Skin Disorder Additional Past Medical History / Comment(s): Gestational DM. Eczema. History of Any Multi-Drug Resistant Organisms: None Reported Past Surgical History: Section Additional Past Surgical History / Comment(s): C-S x3. Past Anesthesia/Blood Transfusion Reactions: No Reported Reaction, Family History of Problems w/ Anesthesia Additional Past Anesthesia/Blood Transfusion Reaction / Comment(s): Grandmother has problem waking from anesthesia. Past Psychological History: Anxiety Smoking Status: Former smoker Past Alcohol Use History: Occasional Past Drug Use History: None Reported - Past Family History Mother Family Medical History: No Reported History Father Family Medical History: Cancer Sister(s) Family Medical History: Pulmonary Embolus General Exam General appearance: alert, in no apparent distress Head exam: Present: atraumatic, normocephalic, normal inspection Eye exam: Present: normal appearance, PERRL, EOMI. Absent: scleral icterus, conjunctival injection, periorbital swelling ENT exam: Present: normal exam, mucous membranes moist Neck exam: Present: normal inspection. Absent: tenderness, meningismus, lymphadenopathy Respiratory exam: Present: normal lung sounds bilaterally. Absent: respiratory distress, wheezes, rales, rhonchi, stridor Cardiovascular Exam: Present: regular rate, normal rhythm, normal heart sounds. Absent: systolic murmur, diastolic murmur, rubs, gallop, clicks GI/Abdominal exam: Present: soft, normal bowel sounds. Absent: distended, tenderness, guarding, rebound, rigid Extremities exam: Present: normal inspection, full ROM, normal capillary refill. Absent: tenderness, pedal edema, joint swelling, calf tenderness Back exam: Present: normal inspection Neurological exam: Present: alert, oriented X3, CN II-XII intact Psychiatric exam: Present: normal affect, normal mood Skin exam: Present: warm, dry, intact, normal color. Absent: rash Course Vital Signs 12/01/22 12/01/22 02:10 07:04 Temperature 98.1 F Pulse Rate 85 77 Respiratory 18 18 Rate Blood Pressure 137/96 127/84 O2 Sat by Pulse 98 98 Oximetry - Reevaluation(s) Reevaluation #1: 12/01/22 06:08 Medical records reviewed Reevaluation #2: 12/01/22 06:08 Symptoms relatively unchanged Reevaluation #3: 12/01/22 06:08 Patient informed results and questions are answered Reevaluation #4: 12/01/22 06:08 Was pt. sent in by a medical professional or institution (, PA, MATH INSTRUCTOR, urgent care, hospital, or prison...) When possible be specific @ -no Did you speak to anyone other than the patient for history (EMS, parent, family, police, friend...)? What history was obtained from this source @ -no Did you review nursing and triage notes (agree or disagree)? Why? @ -agree Are old charts reviewed (outside hosp., previous admission, EMS record, old EKG, old radiological studies, urgent care reports/EKG's, prison records)? Report findings @ -yes Differential Diagnosis (chest pain, altered mental status, abdominal pain women, abdominal pain men, vaginal bleeding, weakness, fever, dyspnea, syncope, headache, dizziness, GI bleed, back pain, seizure, CVA, palpatations, mental hea lth, musculoskeletal)? @ -prior EKG interpreted by me (3pts min.). @ -on X-rays interpreted by me (1pt min.). @ -no CT interpreted by me (1pt min.). @ -yes U/S interpreted by me (1pt. min.). @ -no What testing was considered but not performed or refused? (CT, X-rays, U/S, labs)? Why? @ -none What meds were considered but not given or refused? Why? @ -none Did you discuss the management of the patient with other professionals (professionals i.e. , PA, MATH INSTRUCTOR, lab, RT, psych nurse, psychotherapist social worker, saw edge fuser circular, teacher, correction officer reformatory, rehabilitation case coordinator)? Give summary @ -no Was smoking cessation discussed for >3mins.? @ -no Was critical care preformed (if so, how long)? @ -no Were there social determinants of health that impacted care today? How? (Homelessness, low income, unemployed, alcoholism, drug addiction, transportation, low edu. Level, literacy, decrease access to med. care, residential, rehab)? @ -none Was there de-escalation of care discussed even if they declined (Discuss DNR or withdrawal of care, Hospice)? DNR status @ -no What co-morbidities impacted this encounter? (DM, HTN, Smoking, COPD, CAD, Cancer, CVA, ARF, Chemo, Hep., AIDS, mental health diagnosis, sleep apnea, morbid obesity)? @ -none Was patient admitted / discharged? Hospital course, mention meds given and route, prescriptions, significant lab abnormalities, going to OR and other pertinent info. @ -32 female nonspecific neck pain. Patient has no findings on computed tomography scan for cause of neck pain. Likely neck Sprain and mild torticollis From sleeping. Nausea. Patient can be discharged home encouraged motion Tylenol Discharge Undiagnosed new problem with uncertain prognosis? @ -no Drug Therapy requiring intensive monitoring for toxicity (Heparin, Nitro, Insulin, Cardizem)? @ -no Were any procedures done? @ -no Diagnosis/symptom? @ -Neck pain Acute, or Chronic, or Acute on Chronic? @ -Acute Uncomplicated (without systemic symptoms) or Complicated (systemic symptoms)? @ -Complicated Side effects of treatment? @ -no Exacerbation, Progression, or Severe Exacerbation? @ -exacerbation Poses a threat to life or bodily function? How? (Chest pain, [place], DC, pneumonia, PE, COPD, DKA, ARF, appy, cholecystitis, CVA, Diverticulitis, Homicidal, Suicidal, threat to staff... and all critical care pts) @ -no Medical Decision Making - Medical Decision Making 32 female nonspecific neck pain. Patient has no findings on computed tomography scan for cause of neck pain. Likely neck Sprain and mild torticollis From sleeping. Nausea. Patient can be discharged home encouraged motion Tylenol - Lab Data Lab Results 12/01/22 Range/Units 04:24 Group A Strep (PCR) NOT DETECTED (Not Detectd) - Radiology Data Radiology results: report reviewed (CT soft tissue neck negative for acute disease), image reviewed Disposition Clinical Impression: Strain of neck muscle Disposition: HOME SELF-CARE Condition: Good Instructions (If sedation given, give patient instructions): Cervical Strain (ED) Is patient prescribed a controlled substance at d/c from ED?: No Referrals: Frantz Lim DO [Primary Care Provider] - 1-2 days Time of Disposition: 07:00
--- NOTE | 2022-12-01 06:15 | CT ---
EXAMINATION TYPE: CT soft tissue neck wo con CT DLP: 262 mGycm, Automated exposure control for dose reduction was used. DATE OF EXAM: 12/01/2022 4:38 AM COMPARISON: None. CLINICAL INDICATION:Female, 32 years old with history of neck pain R; TECHNIQUE: Standard enhanced CT of the neck. Axial sections with coronal and sagittal reformats were obtained. Contrast used: mL of , none. Oral contrast used: none. FINDINGS: Brain: Visualized portions are grossly unremarkable. Orbits: Unremarkable Sinuses: Grossly unremarkable. Spaces of the neck: Clear and symmetric. Musculoskeletal: No acute osseous pathology. Lymph nodes: Multiple nonenlarged lymph nodes are seen along both anterior chains of the neck. Vascular structures: Unremarkable. Thoracic Inlet/airway: Airway is patent. The lung apices are clear. Soft tissues/Thyroid: Thyroid and remainder of the soft tissues are unremarkable. Other: none. IMPRESSION No definite evidence for abscess or significant abnormality.
[2022-12-01 07:05] VITALS: BP 127/84; PULSE 77
== END 2022-12-01 07:05 | disposition home or self-care (01) ==
LOC: EC 02:03
DX: S16.1XXA Strain of muscle, fascia and tendon at neck level, initial encounter (principal); I10 Essential (primary) hypertension; E11.9 Type 2 diabetes mellitus without complications; Z86.59 Personal history of other mental and behavioral disorders; Z87.891 Personal history of nicotine dependence; X58.XXXA Exposure to other specified factors, initial encounter
CPT/HCPCS: 70490; 87651; 99284